=== PATIENT | female | born 1945 | race Caucasian/White ===

== ENCOUNTER 2019-09-24 14:06 | Inpatient (IN) | payer MEDICARE, OTHER ==
[~2019-09-24] VITALS: Ht 175.3 cm; Wt 117.9 kg
--- OUTSIDE RECORDS SUMMARY | 2019-09-24 14:09 | XMS REPORT ---
Author Author [facility] Address Unknown Phone Unavailable Care Team Providers Care Home Designer Name Role Phone BRANDEN APARICIO Unavailable Unavailable ISIAH ISBELL Unavailable Unavailable Problems This patient has no known problems. Allergies, Adverse Reactions, Alerts This patient has no known allergies or adverse reactions. Medications This patient has no known medications. Results Test Description Test Time Test Comments Text Results Atomic Results Result Comments POCT-GLUCOSE METER 2019-06-14 11:16:00 POC-GLUCOSE METER (BEAKER) (test yziq=3548) 145 mg/dL 70-110 : TESTED AT [address], [address]: Analog Ic Design Architect/Customs Entry Writer [id number] for LIS COYNE POCT-GLUCOSE [id number] 11:03:00* Test Item Value Reference Range Comments POC-GLUCOSE METER (BEAKER) (test qlys=4015) 273 mg/dL 70-110 : TESTED AT [address], [address]: Analog Ic Design Architect/Customs Entry Writer [id number] for NATALY SAWYER [id number] 06:20:00* Test Item Value Reference Range Comments MAGNESIUM (BEAKER) (test htiv=756) 2.1 mg/dL 1.6-2.6 BASIC METABOLIC [id number] 06:20:00* Test Item Value Reference Range Comments SODIUM (BEAKER) (test ucxb=239) 137 meq/L 136-145 POTASSIUM (BEAKER) (test focn=620) 4.0 meq/L 3.5-5.1 CHLORIDE (BEAKER) (test yowb=957) 100 meq/L 98-107 CO2 (BEAKER) (test rgvd=121) 29 meq/L 22-29 BLOOD UREA NITROGEN (BEAKER) (test erdb=782) 20 mg/dL 7-21 CREATININE (BEAKER) (test itim=397) 1.10 mg/dL 0.57-1.25 GLUCOSE RANDOM (BEAKER) (test rufk=535) 172 mg/dL 70-105 CALCIUM (BEAKER) (test gnor=816) 8.8 mg/dL 8.4-10.2 EGFR (BEAKER) (test qonl=3066) 49 mL/min/1.73 sq m ESTIMATED GFR IS NOT ACCURATE CREATININE CLEARANCE IN PREDICTING GLOMERULAR FILTRATION RATE. ESTIMATED GFR IS NOT APPLICABLE FOR DIALYSIS PATIENTS. POCT-GLUCOSE [id number] 16:48:00* Test Item Value Reference Range Comments POC-GLUCOSE METER (BEAKER) (test ozcj=3159) 246 mg/dL 70-110 : TESTED AT [facility] [address] [facility], [address]: Analog Ic Design Architect/Customs Entry Writer [id number] for LIS COYNE ESOPH, SWALLOW FUNCTION, WITH CINE OR [id number] 16:14:00Patient is NPO since 24 hrs almost , cannot give IV fluids due to CHFReason for exam:->severe dysphagiaFINAL REPORT Modified barium swallow exam with speech pathology service CLINICAL HISTORY: severe dysphagia IMPRESSION: Please see the speech pathology service report for details. Barium contrast of multiple consistencies is given to the patient to swallow. Fluoroscopic observation is performed during swallowing. Fluoro time: 3.5 minutes Number of images: 1 Signed: Ashly Lima Verified Date/Time: 06/13/2019 16:14:07 Reading Location: [address] Ortho Consult Reading Room -GLUCOSE [id number] 08:22:00 * Test Item Value Reference Range Comments POC-GLUCOSE METER (BEAKER) (test skqt=7515) 190 mg/dL 70-110 : TESTED AT [facility] [address] [facility], [address]: Analog Ic Design Architect/Customs Entry Writer [id number] for LIS COYNE POCT-GLUCOSE [id number] 21:24:00* Test Item Value Reference Range Comments POC-GLUCOSE METER (BEAKER) (test hxrd=5594) 256 mg/dL 70-110 : TESTED AT [facility] [address] [facility] [facility], [address]: Analog Ic Design Architect/Customs Entry Writer [id number] for ERICA LITTLE III POCT-GLUCOSE [id number] 18:38:00* Test Item Value Reference Range Comments POC-GLUCOSE METER (BEAKER) (test gdne=6909) 180 mg/dL 70-110 : TESTED AT [address], [address]: Analog Ic Design Architect/Customs Entry Writer [id number] for DIXON, ERANDY POCT-GLUCOSE [id number] 12:36:00* Test Item Value Reference Range Comments POC-GLUCOSE METER (BEAKER) (test wdog=1088) 171 mg/dL 70-110 : TESTED AT [address], [address]: Analog Ic Design Architect/Customs Entry Writer [id number] for DIXON, ERANDY POCT-GLUCOSE [id number] 08:43:00* Test Item Value Reference Range Comments POC-GLUCOSE METER (BEAKER) (test hzkp=2942) 142 mg/dL 70-110 : TESTED AT [address], [address]: Analog Ic Design Architect/Customs Entry Writer [id number] for DIXON, ERANDY POCT-GLUCOSE [id number] 21:13:00* Test Item Value Reference Range Comments POC-GLUCOSE METER (BEAKER) (test hwhq=9666) 223 mg/dL 70-110 : TESTED AT [address], [address]: Analog Ic Design Architect/Customs Entry Writer [id number] for SIDNEY VASQUEZ ERICA POCT-GLUCOSE [id number] 16:54:00* Test Item Value Reference Range Comments POC-GLUCOSE METER (BEAKER) (test mohs=0866) 152 mg/dL 70-110 : TESTED AT [address], [address]: Analog Ic Design Architect/Customs Entry Writer [id number] for LIS COYNE POCT-GLUCOSE [id number] 12:29:00* Test Item Value Reference Range Comments POC-GLUCOSE METER (BEAKER) (test nhry=1227) 125 mg/dL 70-110 : TESTED AT [address], [address]: Analog Ic Design Architect/Customs Entry Writer [id number] for LIS COYNE [id number] 05:44:00* Test Item Value Reference Range Comments MAGNESIUM (BEAKER) (test beup=802) 2.1 mg/dL 1.6-2.6 BASIC METABOLIC [id number] 05:44:00* Test Item Value Reference Range Comments SODIUM (BEAKER) (test hmba=513) 137 meq/L 136-145 POTASSIUM (BEAKER) (test gena=361) 4.1 meq/L 3.5-5.1 CHLORIDE (BEAKER) (test hpfx=977) 98 meq/L 98-107 CO2 (BEAKER) (test ngtn=711) 31 meq/L 22-29 BLOOD UREA NITROGEN (BEAKER) (test mknk=639) 19 mg/dL 7-21 CREATININE (BEAKER) (test lrno=591) 1.21 mg/dL 0.57-1.25 GLUCOSE RANDOM (BEAKER) (test ipkt=992) 162 mg/dL 70-105 CALCIUM (BEAKER) (test fuyl=127) 8.1 mg/dL 8.4-10.2 EGFR (BEAKER) (test ozxn=1892) 44 mL/min/1.73 sq m ESTIMATED GFR IS NOT ACCURATE CREATININE CLEARANCE IN PREDICTING GLOMERULAR FILTRATION RATE. ESTIMATED GFR IS NOT APPLICABLE FOR DIALYSIS PATIENTS. POCT-GLUCOSE [id number] 22:35:00* Test Item Value Reference Range Comments POC-GLUCOSE METER (BEAKER) (test vilr=8120) 168 mg/dL 70-110 : TESTED AT [address], [address]: Analog Ic Design Architect/Customs Entry Writer [id number] for FINN MADISON POCT-GLUCOSE [id number] 12:48:00* Test Item Value Reference Range Comments POC-GLUCOSE METER (BEAKER) (test mpna=4093) 149 mg/dL 70-110 : TESTED AT [address], [address]: Analog Ic Design Architect/Customs Entry Writer [id number] for Jyotsna Snell POCT-GLUCOSE [id number] 08:51:00* Test Item Value Reference Range Comments POC-GLUCOSE METER (BEAKER) (test ccma=0273) 122 mg/dL 70-110 : TESTED AT [address], [address]: Analog Ic Design Architect/Customs Entry Writer [id number] for BRENDA MCCARTHY [id number] 05:15:00* Test Item Value Reference Range Comments MAGNESIUM (BEAKER) (test pnxs=479) 1.9 mg/dL 1.6-2.6 BASIC METABOLIC [id number] 05:15:00* Test Item Value Reference Range Comments SODIUM (BEAKER) (test qxjm=052) 139 meq/L 136-145 POTASSIUM (BEAKER) (test joka=886) 3.7 meq/L 3.5-5.1 CHLORIDE (BEAKER) (test dzog=573) 98 meq/L 98-107 CO2 (BEAKER) (test trpg=926) 32 meq/L 22-29 BLOOD UREA NITROGEN (BEAKER) (test bwim=374) 16 mg/dL 7-21 CREATININE (BEAKER) (test giji=570) 1.03 mg/dL 0.57-1.25 GLUCOSE RANDOM (BEAKER) (test seas=832) 141 mg/dL 70-105 CALCIUM (BEAKER) (test vbhn=926) 8.3 mg/dL 8.4-10.2 EGFR (BEAKER) (test diih=8483) 53 mL/min/1.73 sq m ESTIMATED GFR IS NOT ACCURATE CREATININE CLEARANCE IN PREDICTING GLOMERULAR FILTRATION RATE. ESTIMATED GFR IS NOT APPLICABLE FOR DIALYSIS PATIENTS. B-TYPE NATRIURETIC FACTOR (BNP)2019-06-10 05:10:00* Test Item Value Reference Range Comments B-TYPE NATRIURETIC PEPTIDE (BEAKER) (test zdbs=955) 441 pg/mL 0-100 POCT-GLUCOSE [id number] 21:21:00* Test Item Value Reference Range Comments POC-GLUCOSE METER (BEAKER) (test dnjc=2060) 141 mg/dL 70-110 : TESTED AT [facility] [address] [facility], [address]: Analog Ic Design Architect/Customs Entry Writer [id number] for FINN MADISON POCT-GLUCOSE [id number] 17:21:00* Test Item Value Reference Range Comments POC-GLUCOSE METER (BEAKER) (test rnsr=4941) 82 mg/dL 70-110 : TESTED AT [facility] [address] [facility], [address]: Analog Ic Design Architect/Customs Entry Writer [id number] for Jyotsna Snell [id number] 07:35:00* Test Item Value Reference Range Comments MAGNESIUM (BEAKER) (test kosu=608) 1.6 mg/dL 1.6-2.6 BASIC METABOLIC [id number] 07:35:00* Test Item Value Reference Range Comments SODIUM (BEAKER) (test asso=817) 137 meq/L 136-145 POTASSIUM (BEAKER) (test jywy=042) 3.2 meq/L 3.5-5.1 CHLORIDE (BEAKER) (test duft=410) 98 meq/L 98-107 CO2 (BEAKER) (test xcwq=468) 30 meq/L 22-29 BLOOD UREA NITROGEN (BEAKER) (test mpaj=192) 16 mg/dL 7-21 CREATININE (BEAKER) (test hjpp=673) 0.94 mg/dL 0.57-1.25 GLUCOSE RANDOM (BEAKER) (test viur=442) 145 mg/dL 70-105 CALCIUM (BEAKER) (test jcjf=400) 8.2 mg/dL 8.4-10.2 EGFR (BEAKER) (test bctx=8487) 59 mL/min/1.73 sq m ESTIMATED GFR IS NOT ACCURATE CREATININE CLEARANCE IN PREDICTING GLOMERULAR FILTRATION RATE. ESTIMATED GFR IS NOT APPLICABLE FOR DIALYSIS PATIENTS. CBC W/PLT COUNT & AUTO [id number] 05:35:00* Test Item Value Reference Range Comments WHITE BLOOD CELL COUNT (BEAKER) (test yknp=144) 8.5 K/ L 3.5-10.5 RED BLOOD CELL COUNT (BEAKER) (test tvtu=719) 3.53 M/ L 3.93-5.22 HEMOGLOBIN (BEAKER) (test qadg=384) 10.9 GM/DL 11.2-15.7 HEMATOCRIT (BEAKER) (test qhbc=078) 34.6 % 34.1-44.9 MEAN CORPUSCULAR VOLUME (BEAKER) (test qrxg=403) 98.0 fL 79.4-94.8 MEAN CORPUSCULAR HEMOGLOBIN (BEAKER) (test ylqx=321) 30.9 pg 25.6-32.2 MEAN CORPUSCULAR HEMOGLOBIN CONC (BEAKER) (test wley=585) 31.5 GM/DL 32.2-35.5 RED CELL DISTRIBUTION WIDTH (BEAKER) (test wlmz=691) 16.0 % 11.7-14.4 PLATELET COUNT (BEAKER) (test fcdg=805) 210 K/CU MM 150-450 MEAN PLATELET VOLUME (BEAKER) (test xpng=929) 10.2 fL 9.4-12.3 NUCLEATED RED BLOOD CELLS (BEAKER) (test nmxv=695) 0 /100 WBC 0-0 NEUTROPHILS RELATIVE PERCENT (BEAKER) (test cfni=922) 66 % LYMPHOCYTES RELATIVE PERCENT (BEAKER) (test kujd=615) 22 % MONOCYTES RELATIVE PERCENT (BEAKER) (test qvec=395) 9 % EOSINOPHILS RELATIVE PERCENT (BEAKER) (test qkdx=744) 2 % BASOPHILS RELATIVE PERCENT (BEAKER) (test ljqx=124) 1 % NEUTROPHILS ABSOLUTE COUNT (BEAKER) (test zaiw=441) 5.61 K/ L 1.56-6.13 LYMPHOCYTES ABSOLUTE COUNT (BEAKER) (test xrim=926) 1.89 K/ L 1.18-3.74 MONOCYTES ABSOLUTE COUNT (BEAKER) (test nblx=829) 0.77 K/ L 0.24-0.36 EOSINOPHILS ABSOLUTE COUNT (BEAKER) (test erut=327) 0.17 K/ L 0.04-0.36 BASOPHILS ABSOLUTE COUNT (BEAKER) (test ydzc=340) 0.05 K/ L 0.01-0.08 IMMATURE GRANULOCYTES-RELATIVE PERCENT (BEAKER) (test cvfg=2396) 1 % 0-1 POCT-GLUCOSE [id number] 21:31:00* Test Item Value Reference Range Comments POC-GLUCOSE METER (BEAKER) (test ojtq=3442) 218 mg/dL 70-110 : TESTED AT [address], [address]: Analog Ic Design Architect/Customs Entry Writer [id number] for FINN MADISON POCT-GLUCOSE [id number] 17:30:00* Test Item Value Reference Range Comments POC-GLUCOSE METER (BEAKER) (test guao=0904) 145 mg/dL 70-110 : TESTED AT [address], [address]: Analog Ic Design Architect/Customs Entry Writer [id number] for HORTENCIAOMAR POCT-GLUCOSE [id number] 10:28:00* Test Item Value Reference Range Comments POC-GLUCOSE METER (BEAKER) (test pmxd=0180) 138 mg/dL 70-110 : TESTED AT [address], [address]: Analog Ic Design Architect/Customs Entry Writer [id number] for Jyotsna Snell C-REACTIVE [id number] 06:01:00* Test Item Value Reference Range Comments C-REACTIVE PROTEIN (BEAKER) (test sqzd=402) 10.42 mg/dL 0.00-0.50 [id number] 05:45:00* Test Item Value Reference Range Comments MAGNESIUM (BEAKER) (test dtml=209) 1.4 mg/dL 1.6-2.6 BASIC METABOLIC [id number] 05:45:00* Test Item Value Reference Range Comments SODIUM (BEAKER) (test cqiy=068) 136 meq/L 136-145 POTASSIUM (BEAKER) (test xrxo=830) 2.9 meq/L 3.5-5.1 CHLORIDE (BEAKER) (test xint=905) 98 meq/L 98-107 CO2 (BEAKER) (test fsrh=409) 30 meq/L 22-29 BLOOD UREA NITROGEN (BEAKER) (test kkau=240) 18 mg/dL 7-21 CREATININE (BEAKER) (test skmv=035) 1.02 mg/dL 0.57-1.25 GLUCOSE RANDOM (BEAKER) (test tmot=450) 124 mg/dL 70-105 CALCIUM (BEAKER) (test uaxj=259) 8.5 mg/dL 8.4-10.2 EGFR (BEAKER) (test zygw=5195) 53 mL/min/1.73 sq m ESTIMATED GFR IS NOT ACCURATE CREATININE CLEARANCE IN PREDICTING GLOMERULAR FILTRATION RATE. ESTIMATED GFR IS NOT APPLICABLE FOR DIALYSIS PATIENTS. B-TYPE NATRIURETIC FACTOR (BNP)2019-06-08 05:10:00* Test Item Value Reference Range Comments B-TYPE NATRIURETIC PEPTIDE (BEAKER) (test roht=846) 648 pg/mL 0-100 CBC W/PLT COUNT & AUTO [id number] 04:39:00* Test Item Value Reference Range Comments WHITE BLOOD CELL COUNT (BEAKER) (test sgbi=770) 9.3 K/ L 3.5-10.5 RED BLOOD CELL COUNT (BEAKER) (test uock=974) 3.80 M/ L 3.93-5.22 HEMOGLOBIN (BEAKER) (test oyng=088) 11.7 GM/DL 11.2-15.7 HEMATOCRIT (BEAKER) (test wsgi=748) 36.8 % 34.1-44.9 MEAN CORPUSCULAR VOLUME (BEAKER) (test waqe=977) 96.8 fL 79.4-94.8 MEAN CORPUSCULAR HEMOGLOBIN (BEAKER) (test szmu=097) 30.8 pg 25.6-32.2 MEAN CORPUSCULAR HEMOGLOBIN CONC (BEAKER) (test cuig=189) 31.8 GM/DL 32.2-35.5 RED CELL DISTRIBUTION WIDTH (BEAKER) (test gfyu=333) 16.0 % 11.7-14.4 PLATELET COUNT (BEAKER) (test tnwb=519) 221 K/CU MM 150-450 MEAN PLATELET VOLUME (BEAKER) (test bjse=694) 9.8 fL 9.4-12.3 NUCLEATED RED BLOOD CELLS (BEAKER) (test uhxk=888) 0 /100 WBC 0-0 NEUTROPHILS RELATIVE PERCENT (BEAKER) (test wwbg=117) 69 % LYMPHOCYTES RELATIVE PERCENT (BEAKER) (test axau=024) 20 % MONOCYTES RELATIVE PERCENT (BEAKER) (test bqtc=643) 8 % EOSINOPHILS RELATIVE PERCENT (BEAKER) (test yyfk=724) 1 % BASOPHILS RELATIVE PERCENT (BEAKER) (test aaga=611) 1 % NEUTROPHILS ABSOLUTE COUNT (BEAKER) (test eltu=450) 6.44 K/ L 1.56-6.13 LYMPHOCYTES ABSOLUTE COUNT (BEAKER) (test zqqm=472) 1.90 K/ L 1.18-3.74 MONOCYTES ABSOLUTE COUNT (BEAKER) (test cckj=006) 0.73 K/ L 0.24-0.36 EOSINOPHILS ABSOLUTE COUNT (BEAKER) (test lqnj=741) 0.11 K/ L 0.04-0.36 BASOPHILS ABSOLUTE COUNT (BEAKER) (test ovvs=889) 0.05 K/ L 0.01-0.08 IMMATURE GRANULOCYTES-RELATIVE PERCENT (BEAKER) (test lwnz=9960) 1 % 0-1 POCT-GLUCOSE [id number] 21:05:00* Test Item Value Reference Range Comments POC-GLUCOSE METER (BEAKER) (test wemz=5810) 231 mg/dL 70-110 : TESTED AT [facility] [address] [facility], [address]: Analog Ic Design Architect/Customs Entry Writer [id number] for SIDNEY VASQUEZ ERICA POCT-GLUCOSE [id number] 16:54:00* Test Item Value Reference Range Comments POC-GLUCOSE METER (BEAKER) (test dbkj=4299) 281 mg/dL 70-110 : TESTED AT [facility] [address] [facility], [address]: Analog Ic Design Architect/Customs Entry Writer [id number] for HARSHAL MITCHELL POCT-GLUCOSE [id number] 12:16:00* Test Item Value Reference Range Comments POC-GLUCOSE METER (BEAKER) (test hylm=6687) 385 mg/dL 70-110 : TESTED AT [place] [id number] [facility], [address]: Analog Ic Design Architect/Customs Entry Writer [id number] for HARSHAL MITCHELL TROPONIN [id number] 10:01:00* Test Item Value Reference Range Comments TROPONIN I (BEAKER) (test ewom=364) 0.05 ng/mL 0.00-0.03 Troponin I (TnI) levels must be interpreted in the context of the presenting sym ptoms and the clinical findings. Elevated TnI levels indicate myocardial damage, but are not specific for ischemic heart disease. Elevated TnI levels are seen in patients with other cardiac conditions (including myocarditis and congestive h eart failure), and slight TnI elevations occur in patients with other conditions , including sepsis, renal failure, acidosis, acute neurological disease, and per sistent tachyarrhythmia.POCT-GLUCOSE [id number] 09:17:00* Test Item Value Reference Range Comments POC-GLUCOSE METER (BEAKER) (test efil=0987) 338 mg/dL 70-110 : TESTED AT [place] [id number] [facility], [address]: Analog Ic Design Architect/Customs Entry Writer [id number] for HARSHAL MITCHELL TROPONIN [id number] 03:37:00* Test Item Value Reference Range Comments TROPONIN I (BEAKER) (test leew=921) 0.04 ng/mL 0.00-0.03 Troponin I (TnI) levels must be interpreted in the context of the presenting sym ptoms and the clinical findings. Elevated TnI levels indicate myocardial damage, but are not specific for ischemic heart disease. Elevated TnI levels are seen in patients with other cardiac conditions (including myocarditis and congestive h eart failure), and slight TnI elevations occur in patients with other conditions , including sepsis, renal failure, acidosis, acute neurological disease, and per sistent tachyarrhythmia.B-TYPE NATRIURETIC FACTOR (BNP)2019-06-07 03:37:00* Test Item Value Reference Range Comments B-TYPE NATRIURETIC PEPTIDE (BEAKER) (test oibe=351) 388 pg/mL 0-100 BASIC METABOLIC [id number] 03:33:00* Test Item Value Reference Range Comments SODIUM (BEAKER) (test rnar=691) 137 meq/L 136-145 POTASSIUM (BEAKER) (test atjp=825) 4.1 meq/L 3.5-5.1 CHLORIDE (BEAKER) (test hzvj=665) 100 meq/L 98-107 CO2 (BEAKER) (test juyh=570) 27 meq/L 22-29 BLOOD UREA NITROGEN (BEAKER) (test wxtw=314) 21 mg/dL 7-21 CREATININE (BEAKER) (test zeoq=955) 1.12 mg/dL 0.57-1.25 GLUCOSE RANDOM (BEAKER) (test ryal=389) 422 mg/dL 70-105 CALCIUM (BEAKER) (test ieep=680) 9.1 mg/dL 8.4-10.2 EGFR (BEAKER) (test gaxl=0222) 48 mL/min/1.73 sq m ESTIMATED GFR IS NOT ACCURATE CREATININE CLEARANCE IN PREDICTING GLOMERULAR FILTRATION RATE. ESTIMATED GFR IS NOT APPLICABLE FOR DIALYSIS PATIENTS. [id number] 03:31:00* Test Item Value Reference Range Comments PHOSPHORUS (BEAKER) (test tezp=090) 4.2 mg/dL 2.3-4.7 [id number] 03:31:00* Test Item Value Reference Range Comments MAGNESIUM (BEAKER) (test dohi=362) 1.6 mg/dL 1.6-2.6 HEPATIC FUNCTION [id number] 03:31:00* Test Item Value Reference Range Comments TOTAL PROTEIN (BEAKER) (test dcnd=532) 7.0 gm/dL 6.0-8.3 ALBUMIN (BEAKER) (test qunu=0046) 3.2 g/dL 3.5-5.0 BILIRUBIN TOTAL (BEAKER) (test fgpf=856) 0.7 mg/dL 0.2-1.2 BILIRUBIN DIRECT (BEAKER) (test jxsj=567) 0.4 mg/dL 0.1-0.5 ALKALINE PHOSPHATASE (BEAKER) (test dupj=356) 149 U/L 40-150 AST (SGOT) (BEAKER) (test gzgv=827) 53 U/L 5-34 ALT (SGPT) (BEAKER) (test xnxc=635) 27 U/L 6-55 CREATINE KINASE (CK)2019-06-07 03:31:00* Test Item Value Reference Range Comments CREATINE KINASE TOTAL (BEAKER) (test pkrw=524) 76 U/L 29-200 [id number] 03:31:00* Test Item Value Reference Range Comments LIPASE (BEAKER) (test zkno=002) 27 U/L 8-78 RAD, CHEST, 2 [id number] 03:24:00Reason for exam:->shortness of breathFINAL REPORT TECHNIQUE: RAD, CHEST, 2 VIEWS COMPARISON: None available Additional clinical history: Shortness of breath. IMPRESSION: Enlarged cardiomediastinal silhouette. Heterogeneous airspace opacity in the left base may represent a combination of pleural effusion and consolidation. Pneumonia should be excluded clinically. No right-sided pleural effusion. Coarse reticular airspace opacities bilaterally favored represent interstitial pulmonary edema with pulmonary vascular congestion. No pneumothorax. Osseous structures are unre markable. PFO closure device overlies the heart. Signed: Ana Melgoza eport Verified Date/Time: 06/07/2019 03:24:38 /[id number] 03:20:00* Test Item Value Reference Range Comments PROTIME (BEAKER) (test xgzv=486) 14.8 seconds 11.9-14.2 INR (BEAKER) (test kdti=136) 1.2 <=5.9 PARTIAL THROMBOPLASTIN TIME (BEAKER) (test yqgx=533) 25.2 seconds 22.5-36.0 Effective 11/22/2018: PT Reference Range ChangeNew: 11.9-14.2 Previous: 11.7-14. 7RECOMMENDED COUMADIN/WARFARIN INR THERAPY RANGESSTANDARD DOSE: 2.0-3.0 Include s: PROPHYLAXIS for venous thrombosis, systemic embolization; TREATMENT for venou s thrombosis and/or pulmonary embolus.HIGH RISK: Target INR is 2.5-3.5 for patie nts wiht mechanical heart valves.CBC W/PLT COUNT & AUTO [id number] 03:09:00* Test Item Value Reference Range Comments WHITE BLOOD CELL COUNT (BEAKER) (test emux=788) 7.8 K/ L 3.5-10.5 RED BLOOD CELL COUNT (BEAKER) (test lfrr=801) 4.13 M/ L 3.93-5.22 HEMOGLOBIN (BEAKER) (test hwki=285) 12.8 GM/DL 11.2-15.7 HEMATOCRIT (BEAKER) (test slyp=085) 40.3 % 34.1-44.9 MEAN CORPUSCULAR VOLUME (BEAKER) (test kykr=217) 97.6 fL 79.4-94.8 MEAN CORPUSCULAR HEMOGLOBIN (BEAKER) (test iqzf=701) 31.0 pg 25.6-32.2 MEAN CORPUSCULAR HEMOGLOBIN CONC (BEAKER) (test nmxf=700) 31.8 GM/DL 32.2-35.5 RED CELL DISTRIBUTION WIDTH (BEAKER) (test mixf=414) 15.9 % 11.7-14.4 PLATELET COUNT (BEAKER) (test mjul=494) 197 K/CU MM 150-450 MEAN PLATELET VOLUME (BEAKER) (test phjq=615) 9.8 fL 9.4-12.3 NUCLEATED RED BLOOD CELLS (BEAKER) (test nnuo=799) 0 /100 WBC 0-0 NEUTROPHILS RELATIVE PERCENT (BEAKER) (test sudm=947) 80 % LYMPHOCYTES RELATIVE PERCENT (BEAKER) (test hign=958) 12 % MONOCYTES RELATIVE PERCENT (BEAKER) (test agxs=296) 6 % EOSINOPHILS RELATIVE PERCENT (BEAKER) (test utqa=756) 1 % BASOPHILS RELATIVE PERCENT (BEAKER) (test butd=276) 1 % NEUTROPHILS ABSOLUTE COUNT (BEAKER) (test sgrf=631) 6.24 K/ L 1.56-6.13 LYMPHOCYTES ABSOLUTE COUNT (BEAKER) (test vkku=481) 0.92 K/ L 1.18-3.74 MONOCYTES ABSOLUTE COUNT (BEAKER) (test tcnx=060) 0.50 K/ L 0.24-0.36 EOSINOPHILS ABSOLUTE COUNT (BEAKER) (test fsxd=438) 0.10 K/ L 0.04-0.36 BASOPHILS ABSOLUTE COUNT (BEAKER) (test vukh=164) 0.04 K/ L 0.01-0.08 IMMATURE GRANULOCYTES-RELATIVE PERCENT (JENNA) (test ysay=0733) 1 % 0-1 NV, ANGIOGRAM, [id number] 17:06:00Reason for Exam:->paz paz disease FINAL REPORT Date of service February 01, 2017Clinical backg round: 71 years old female with history of moyamoya disease. The patient was ref erred for cerebral arteriogram to evaluate the intracranial and extracranial cir culation. Procedure: The risk and benefits of the procedure as well as alternat nicole were explained to the patient and she expressed understanding and willingne ss to proceed with the procedure. A consent form was signed by the mother.. The risks include but not limited to stroke, damage to the blood vessels, damage to the cranial nerves, hemorrhage, infection, allergic reaction to the contrast, da mage to the kidney with renal failure,need for emergency treatment, and . Using a micropuncture set and under fluoroscopic guidance and strict sterile [place] hn[place] a 4 Thai femoral sheath was inserted into the right common femoral whitney ry. Through the sheath a 4 Thai vertebral catheter was then advanced over the wire and the following procedure was performed: 1. Selective right common car otid arteriogram with biplane imaging over the common carotid bifurcation. 2. Se lective right internal carotid arteriogram with biplane and oblique imaging over the intracranial carotid circulation.3. Selective right external carotid arteri ogram with biplane imaging over the intracranial carotid circulation.4. Selectiv e left common carotid arteriogram with biplane imaging over the common carotid b ifurcation. 5. Selective left internal carotid arteriogram with biplane and obli que imaging over the intracranial carotid circulation.6. Selective left external carotid arteriogram with biplane imaging over the intracranial carotid circulat ion7. Selective left vertebral arteriogram with biplane and oblique imaging over the vertebrobasilar circulation.8. Selective right vertebral arteriogram with b iplane and oblique imaging over the vertebrobasilar circulation. Findings: Th e selective right common carotid arteriogram with biplane imaging over the commo n carotid bifurcation showed mild atherosclerotic changes with no significant st enosis in the proximal internal carotid artery. 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 There are numerous prominent arterial-arterial collaterals as well as collateral from the right ophthalmic artery with mild reconstitution of the right anterior and middle cerebral arteries in antegrade fashion. There is direct filling of the right posterior cerebral artery through a prominent right posterior communic ating artery with good retrograde filling of the cortical branches of the right anterior and middle cerebral arteries through numerous collaterals from the temp oral, choroidal, splenial , and cortical branches of the posterior cerebral whitney ry The selective right external carotid arteriogram demonstrates normal branchin g with patent superficial temporal and middle meningeal arteries. There are few transdural meningeal collaterals to the intracranial carotid circulation. The s elective left common carotid arteriogram with biplane imaging over the common ca rotid bifurcation showed mild atherosclerotic changes with no significant stenos is in the proximal internal carotid artery. The selective left internal carotid arteriogram again demonstrates complete occlusion of the supraclinoid segment of the left internal carotid artery distal to the origin of the ophthalmic artery. There are numerous prominent arterial-arterial collaterals as well as collateral from the right ophthalmic artery with mild reconstitution of the right anterior and middle cerebral arteries in antegrade fashion. There is direct filling of the right posterior cerebral artery through a prominent right posterior communic ating artery with good retrograde filling of the cortical branches of the right anterior and middle cerebral arteries through numerous collaterals from the temp oral, choroidal, splenial , and cortical branches of the posterior cerebral whitney ry. There is also filling across the anterior communicating artery and both KOBY fillings are seen on this left injection. The selective left external carotid ar teriogram demonstrates normal branching with with patent superficial temporal an d middle meningeal arteries. There are few transdural meningeal collaterals from the left distal internal maxillary artery to the cortical branches of the left anterior cerebral artery. The selective left vertebral arteriograms demonstrates normal antegrade flow with no evidence of aneurysm, vascular malformation, or s ignificant focal stenosis.There are numerous collaterals from the temporal, chor oidal, splenial, and cortical branches of the posterior cerebral arteries to the KOBY and MCA bilaterally. At the end of the procedure, the right femoral sheath was withdrawn. Local hemostasis was achieved utilizing manual compression. The p atient awoke from general anesthesia at baseline neurologic examination without acute complication.clinical background: Impression: 1. 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 2. Prominent strial collaterals around the basal ganglia as well as pial collaterals from the posterior circulat ion. 6. Patent bilateral superficial temporal and middle meningeal arteries with few transdural meningeal collaterals bilaterally . Signed: Marie Archuleta MDReport Verified Date/Time: 02/01/2017 17:06:26 Reading Location: [facility] Y[address] [facility] io Reading Room /[id number] 12:49:00* Test Item Value Reference Range Comments PROTIME (BEAKER) (test gybb=134) 13.5 seconds 11.7-14.7 INR (BEAKER) (test bgij=604) 1.0 <=5.9 PARTIAL THROMBOPLASTIN TIME (BEAKER) (test acet=338) 28.0 seconds 22.5-36.0 RECOMMENDED COUMADIN/WARFARIN INR THERAPY RANGESSTANDARD DOSE: 2.0 - 3.0 Inclu wil: PROPHYLAXIS for venous thrombosis, systemic embolization; TREATMENT for elsa ous thrombosis and/or pulmonary embolus.HIGH RISK: Target INR is 2.5-3.5 for pat ients with mechanical heart valves.BASIC METABOLIC [id number] 12:27:00* Test Item Value Reference Range Comments SODIUM (BEAKER) (test nrme=453) 139 meq/L 136-145 POTASSIUM (BEAKER) (test pikr=721) 4.2 meq/L 3.5-5.1 CHLORIDE (BEAKER) (test onvs=922) 104 meq/L 98-107 CO2 (BEAKER) (test wjfu=816) 26 meq/L 22-29 BLOOD UREA NITROGEN (BEAKER) (test pzlm=721) 14 mg/dL 7-21 CREATININE (BEAKER) (test ebto=037) 0.97 mg/dL 0.57-1.25 GLUCOSE RANDOM (BEAKER) (test kiiq=809) 293 mg/dL 70-105 CALCIUM (BEAKER) (test nlhk=225) 8.9 mg/dL 8.4-10.2 EGFR (BEAKER) (test tozi=0444) 57 mL/min/1.73 sq m ESTIMATED GFR IS NOT ACCURATE CREATININE CLEARANCE IN PREDICTING GLOMERULAR FILTRATION RATE. ESTIMATED GFR IS NOT APPLICABLE FOR DIALYSIS PATIENTS. CBC W/PLT COUNT & AUTO [id number] 12:04:00* Test Item Value Reference Range Comments WHITE BLOOD CELL COUNT (BEAKER) (test wnik=842) 7.7 K/ L 3.5-10.5 RED BLOOD CELL COUNT (BEAKER) (test qezp=191) 3.76 M/ L 3.93-5.22 HEMOGLOBIN (BEAKER) (test iomv=414) 11.7 GM/DL 11.2-15.7 HEMATOCRIT (BEAKER) (test solj=771) 35.5 % 34.1-44.9 MEAN CORPUSCULAR VOLUME (BEAKER) (test vtrm=404) 94.4 fL 79.4-94.8 MEAN CORPUSCULAR HEMOGLOBIN (BEAKER) (test qaxm=527) 31.1 pg 25.6-32.2 MEAN CORPUSCULAR HEMOGLOBIN CONC (BEAKER) (test fppo=408) 33.0 GM/DL 32.2-35.5 RED CELL DISTRIBUTION WIDTH (BEAKER) (test kukk=924) 13.8 % 11.7-14.4 PLATELET COUNT (BEAKER) (test nvcb=268) 229 K/CU MM 150-450 MEAN PLATELET VOLUME (BEAKER) (test slcn=964) 9.3 fL 9.4-12.3 NUCLEATED RED BLOOD CELLS (BEAKER) (test gwat=199) 0 /100 WBC 0-0 NEUTROPHILS RELATIVE PERCENT (BEAKER) (test illo=642) 66 % LYMPHOCYTES RELATIVE PERCENT (BEAKER) (test otjt=766) 24 % MONOCYTES RELATIVE PERCENT (BEAKER) (test rmxy=114) 7 % EOSINOPHILS RELATIVE PERCENT (BEAKER) (test kcak=032) 2 % BASOPHILS RELATIVE PERCENT (BEAKER) (test fztt=268) 1 % NEUTROPHILS ABSOLUTE COUNT (BEAKER) (test dvju=560) 5.05 K/ L 1.56-6.13 LYMPHOCYTES ABSOLUTE COUNT (BEAKER) (test vpfb=082) 1.80 K/ L 1.18-3.74 MONOCYTES ABSOLUTE COUNT (BEAKER) (test jwrs=430) 0.54 K/ L 0.24-0.36 EOSINOPHILS ABSOLUTE COUNT (BEAKER) (test vibw=129) 0.16 K/ L 0.04-0.36 BASOPHILS ABSOLUTE COUNT (BEAKER) (test ureb=613) 0.04 K/ L 0.01-0.08 IMMATURE GRANULOCYTES-RELATIVE PERCENT (BEAKER) (test tlwt=6208) 1 % 0-1
[2019-09-24] MEDS ORDERED: FUROSEMIDE INJ 10 MG/ML 4 ML VIAL IV ONE (14:30)
[2019-09-24] MEDS ORDERED: CLINDAMYCIN PHOS 900MG/ 50ML 50 ML IV SCH (14:30)
[2019-09-24 14:50] LABS: BASOPHILS % 0.6 % (0.0-1.0); EOSINOPHILS # (AUTO) 0.3 (0.0-0.4); EOSINOPHILS % 4.2 % (0.0-6.0); HEMATOCRIT 29.1 % (34.2-44.1); HEMOGLOBIN 9.1 g/dL (12.0-16.0); LYMPHOCYTES # (AUTO) 1.5 (1.0-3.2); LYMPHOCYTES % 24.4 % (18.0-39.1); MEAN CORPUSCULAR HEMOGLOBIN 32.6 pg (28-32); MEAN CORPUSCULAR HGB CONC 31.3 g/dL (31-35); MEAN CORPUSCULAR VOLUME 104.3 fL (81-99); MONOCYTES # (AUTO) 0.5 (0.2-0.8); MONOCYTES % 8.4 % (4.4-11.3); NEUTROPHILS # (AUTO) 3.8 (2.1-6.9); NEUTROPHILS % 61.9 % (38.7-80.0); PLATELET COUNT 206 x10e3/uL (140-360); RED BLOOD COUNT 2.79 x10e6/uL (3.6-5.1); RED CELL DISTRIBUTION WIDTH 16.9 % (11.7-14.4)
[2019-09-24 14:55] LABS: CLARITY,URINE SL CLOUDY (CLEAR); COLOR,URINE YELLOW (YELLOW); LEUKOCYTE ESTERASE ,URINE 2+ (NEGATIVE)
[2019-09-24 14:56] LABS: BILIRUBIN,URINE NEGATIVE (NEGATIVE); KETONES,URINE NEGATIVE (NEGATIVE); NITRITE,URINE POSITIVE (NEGATIVE); PROTEIN,URINE DIPSTICK 1+ (NEGATIVE); URINE UROBILINOGEN 0.2 mg/dL (0.2 - 1)
[2019-09-24] MEDS ORDERED: FLUCONAZOLE 100 MG/NS 50 ML 50 ML IV ONE (15:00)
[2019-09-24 15:02] LABS: ALBUMIN 2.8 g/dL (3.5-5.0); ALBUMIN/GLOBULIN RATIO 0.6 (0.8-2.0); ANION GAP 12.6 mmol/L (8-16); CALCIUM 8.6 mg/dL (8.4-10.2); CREATININE, SERUM 2.03 mg/dL (0.57-1.11); POTASSIUM 4.6 mmol/L (3.5-5.1)
[2019-09-24 15:11] LABS: BACTERIA,URINE MANY /HPF; WBC,URINE (MAN) >50 /HPF (0-5)
[2019-09-24] MEDS ORDERED: ONDANSETRON HCL INJ 2MG/ML 2ML 2 MG/ML VIAL IV PRN (15:45)
[2019-09-24] MEDS ORDERED: SODIUM CHLORIDE FLUSH 10 ML SYR IV PRN (15:45)
[2019-09-24] MEDS ORDERED: CEFTRIAXONE SOD 2 GM/NS 100 ML 100 ML IV ONE (16:00)
[2019-09-24 16:21] LABS: AMPHETAMINES SCREEN,URINE NEGATIVE (NEGATIVE); BENZODIAZEPINES SCREEN,URINE NEGATIVE (NEGATIVE); PHENCYCLIDINE SCREEN,URINE NEGATIVE (NEGATIVE)
--- NOTE | 2019-09-24 16:27 | Diagnostic Imaging Report ---
EXAMINATION: CHEST SINGLE (PORTABLE) INDICATION: Shortness of breath COMPARISON: None FINDINGS: LINES/TUBES:EKG leads overlie the chest. LUNGS:The lungs are moderately inflated. Bilateral hazy airspace opacities. PLEURA:No pleural effusion or pneumothorax. MEDIASTINUM:The cardiomediastinal silhouette appears appears mildly enlarged, possibly related to portable technique. BONES/SOFT TISSUES:No acute osseous injury. ABDOMEN:No free air under the diaphragm. IMPRESSION: Bilateral hazy airspace opacities may represent aspiration and/or pneumonia in the proper clinical setting. Signed by: Timothy Worthington MD on 09/24/2019 4:24 PM
[2019-09-24] MEDS: NYSTATIN 15 GM POWDER UD BTL TOP SCH (17:00)
[2019-09-24 17:15] VITALS: BP 139/78
[2019-09-24 18:03] VITALS: BP 139/78
[2019-09-24] MEDS ORDERED: HYDROCODONE/APAP 7.5MG-325MG 1 EA TAB PO PRN (18:15)
[2019-09-24] MEDS: TRAMADOL HCL 50 MG TAB PO PRN (19:08)
--- NOTE | 2019-09-24 19:57 | NUR ---
RECEIVED PT IN BED AOX3 .RESPIRATIONS ARE EVEN AND UN LABORED BILATERAL LOWER LEGS RED AND SWOLLEN .STAGE 2 TO THE SACRUM .PT HAS F/C DRAINING DENIES PAIN CALL LIGHT WITH IN REACH .CONTINUE TO MONITOR
[2019-09-24 20:31] VITALS: BP 138/67
[2019-09-24 20:36] VITALS: BP 138/67
[2019-09-24] MEDS ORDERED: ENOXAPARIN SOD INJ 40 MG/0.4 ML SYR SC ONE (22:00)
[2019-09-25] VITALS (8 sets, daily range): BP systolic 105–140; BP diastolic 56–82
[2019-09-25] MEDS ORDERED: SODIUM CHLORIDE 0.9% 250ML 250 ML ONE (01:12)
[2019-09-25] MEDS: TRAMADOL HCL 50 MG TAB PO PRN ×3 (01:37→22:56)
[2019-09-25 06:02] LABS: BASOPHILS # (AUTO) 0.1 (0.0-0.1); EOSINOPHILS # (AUTO) 0.2 (0.0-0.4); HEMATOCRIT 30.8 % (34.2-44.1); HEMOGLOBIN 9.3 g/dL (12.0-16.0); LYMPHOCYTES # (AUTO) 1.3 (1.0-3.2); MEAN CORPUSCULAR HEMOGLOBIN 32.1 pg (28-32); MEAN CORPUSCULAR HGB CONC 30.2 g/dL (31-35); MEAN CORPUSCULAR VOLUME 106.2 fL (81-99); MONOCYTES # (AUTO) 0.4 (0.2-0.8); NEUTROPHILS # (AUTO) 3.4 (2.1-6.9); PLATELET COUNT 206 x10e3/uL (140-360)
[2019-09-25] MEDS: CLINDAMYCIN PHOS 900MG/ 50ML 50 ML IV SCH ×3 (06:11→12:38)
[2019-09-25 06:29] LABS: ALBUMIN 2.8 g/dL (3.5-5.0); ALBUMIN/GLOBULIN RATIO 0.6 (0.8-2.0); ANION GAP 12.6 mmol/L (8-16); CALCIUM 8.4 mg/dL (8.4-10.2); CREATININE, SERUM 1.75 mg/dL (0.57-1.11); POTASSIUM 4.6 mmol/L (3.5-5.1)
--- NOTE | 2019-09-25 06:50 | NUR ---
PT C/O PAIN TO THE LOWER LEGS GIVEN ORDERED PAIN MEDICATION .CALL LIGHT WITH IN REACH .CONTINUE TO MONITO R
[2019-09-25] MEDS: NYSTATIN 15 GM POWDER UD BTL TOP SCH ×2 (08:21→16:06)
[2019-09-25] MEDS ORDERED: ENOXAPARIN SOD INJ 40 MG/0.4 ML SYR SC SCH (09:00)
[2019-09-25 10:07] LABS: INR 1.76; PROTHROMBIN TIME 21.8 seconds (11.9-14.5)
[2019-09-25] MEDS ORDERED: DEXTROSE 50% SYRINGE 50 ML IV PRN (10:15)
[2019-09-25] MEDS ORDERED: DIPHENHYDRAMINE HCL 25 MG CAP PO PRN (10:15)
[2019-09-25 11:09] LABS: PARTIAL THROMBOPLASTIN TIME 46.4 seconds (23.8-35.5)
--- NOTE | 2019-09-25 11:23 | Consultation ---
DATE OF CONSULTATION: 09/25/2019 Cardiac Consultation REASON FOR CONSULTATION: Very complex medical problem with a lot of healthy issue with ischemic left foot and nonhealing ulcer on the left foot in addition to severe cellulitis. HISTORY OF PRESENT ILLNESS: The patient is poor historian. Records are taken from her, from her son and from her records, which we were lyn to get some access to her records in [facility]. Apparently, she is a 73-year-old lady who is known with obesity, hypertension, diabetes mellitus, congestive heart failure, CVA in 2009, possible history of atrial fibrillation, chronic swelling of the lower extremity, chronic ischemic changes with ulcers, nonhealing of the lower extremities. The patient followed by Aline Coto and Barbra in [facility]. The patient left there one week ago. There was worsening of ulcer and immobility and unable to do anything. The patient went back to her living place area where she lives with her son. It was noted by the nursing staff she is having severe pain, ulcer and cellulitis of the left lower extremity brought to this institution. Cardiac consultation is obtained. The patient seems to be bedridden for the last few months, unable to do much activity. She is having severe pain in the lower extremity, namely more of the left foot and left leg with ulcer, swelling and repeated admission with cellulitis. The patient's activities are very limited. She is in bed. REVIEW OF SYSTEMS: Very extensive and will be summarized for clarity. GENERAL: Failure to thrive, obesity, immobility. HEENT: Decreased hearing. PULMONARY: Easy fatigability, shortness of breath on minimal activity. CARDIAC: Orthopnea at time, swelling of the lower extremity, easy fatigability. No angina, swelling of the lower extremity, or cough. GI: Constipation. : Incontinence. MUSCULOSKELETAL: Severe pain of the lower extremities, more pronounced on the left lower extremity and left foot. ENDOCRINE: The patient is diabetic of many years' duration. MUSCULOSKELETAL: Aches and pain. SOCIAL HISTORY: She lives with her son. She is nonsmoker and non-alcohol drinker. PAST MEDICAL HISTORY: Very lengthy includin. Diabetes mellitus with severe end-organ damage. 2. Morbid obesity. 3. Congestive heart failure. 4. Hypertension. 5. CVA affecting the left body side. 6. Possible past history of atrial fibrillation. 7. Severe peripheral arterial vascular disease. 8. Chronic swelling of the lower extremity with chronic venous and arterial insufficiency. 9. Nonhealing ulcers on the heel and foot with very painful severe symptoms. FAMILY HISTORY: Positive for diabetes mellitus and hypertension. PHYSICAL EXAMINATION: GENERAL: Morbidly obese lady. VITAL SIGNS: Height of 5 feet 9 inches, weight of 260 pounds, blood pressure 130/80, heart rate of 80, respiratory rate of 18. HEENT: Decreased hearing is noted. NECK: Elevation of jugular venous pulsation is noted. CHEST: Decreased air entry in both bases with crackles. HEART: PMI 5th left intercostal space. Possible 3rd heart sound. Tricuspid regurgitation murmur. ABDOMEN: Liver edge is palpable. EXTREMITIES: Redness and cellulitis of the left lower extremity, chronic venous stasis of both lower extremity quite pronounced. Evidence of ischemic left foot ulcer on the left heel and the left foreleg is smaller, few spotty skin abrasion and ulcers on the right leg. NEUROLOGIC: Awake, alert, very weak, barely can move her extremities. HOME MEDICATIONS: Gabapentin 600 b.i.d., Cymbalta 60 mg a day, Protonix 40 mg a day, Coreg 12.5 mg twice a day, lisinopril 5 mg a day, Lasix 40 mg a day, Aldactone 25 mg a day, pravastatin 80 mg a day, Zetia 10 mg a day, Levemir 15 units a day and Humalog sliding scale, albuterol inhalers p.r.n. ALLERGIES: CODEINE. LABORATORY DATA: BUN of 44, creatinine of 2, sodium of 138, potassium of 4.6. White blood cell count of 5.5, hemoglobin 9.3, hematocrit 30%, and platelet count of 206,000. Urinalysis positive for protein. Chest x-ray showing cardiomegaly. No EKG. IMPRESSION AND PLAN: 1. Cellulitis of the left lower extremity with evidence of both venous and arterial insufficiency with ischemic left foot and presence of more ulcer, more pronounced on the left lower extremity. 2. Diabetes mellitus with end-organ damage. 3. Advanced congestive heart failure, seems to be systolic. 4. Diabetes mellitus, severe end-organ damage. 5. Chronic renal insufficiency. 6. Possible nephrotic syndrome. 7. Anemia. 8. Coronary artery disease. 9. Hypertension. 10. Hypercholesteremia. The patient presented with cellulitis and ischemic left foot with nonhealing ulcers, treatment will be aggressive. We are going to continue her medication. We are going to stop her lisinopril and Aldactone because of her renal insufficiency. We will continue her other medication. We will give her Lasix intravenously. We will check arterial Doppler and venous Doppler to rule out also deep venous thrombosis because of marked swelling of the left lower extremity and more swollen than the right. Arterial Doppler to be done. Echocardiogram to be done. The patient care was for more than 100 minute or 110 minutes, getting data and calling to the son and trying to get more information. Orders are written. Case discussed with the staff. We will follow the patient's progression with you and would like to thank you for your kind referral. MD JAIMEE Khoury/WHIT /[id number]
--- NOTE | 2019-09-25 12:15 | NUR ---
Pt. expressed no spiritual or emotional concerns at this time. Provided hospitality and information on how to reach maintainer operator, if needed. Pt expressed appreciation for visit. No need to follow at this time. FRANNY ZAPIEN Coat Operator Spiritual Care Department O: [phone]
[2019-09-25] MEDS: INSULIN LISPRO 100 UNIT/1 ML 3ML VIAL SQ SCH ×3 (12:36→21:00)
[2019-09-25] MEDS: CEFTRIAXONE SOD 1 GM/NS 50 ML 50 ML IV SCH (16:03)
[2019-09-25] MEDS: VANCOMYCIN 1GM/NS 250 ML 250 ML IV SCH (16:03)
[2019-09-25] MEDS: GABAPENTIN 300 MG CAP PO SCH (16:04)
[2019-09-25] MEDS: LACTOBACILLUS ACIDOPHILUS CAPSULE PO SCH (16:04)
[2019-09-25] MEDS: CARVEDILOL 12.5 MG TAB PO SCH (16:05)
[2019-09-25] MEDS: INSULIN GLARGINE 100 UNITS/ML VIAL SQ SCH ×2 (16:16→21:39)
--- NOTE | 2019-09-25 17:06 | Diagnostic Imaging Report ---
EXAM: Renal Ultrasound INDICATION: ^RENAL FAILURE ^[id number] ^1527 COMPARISON: None TECHNIQUE: Transverse and longitudinal images of the kidneys and bladder were obtained. FINDINGS: Right Kidney: Length: 12.1 cm Appearance: Normal echogenicity. Collecting system: No hydronephrosis Stones: None Cyst/Mass: None Left Kidney: Length: 11.1 cm Appearance: Normal echogenicity. Collecting system: No hydronephrosis Stones: None Cyst/Mass: None Bladder: Decompressed. Darden in place. Incidental note made of splenomegaly to 14.1cm. IMPRESSION: No hydronephrosis or renal calculi. Splenomegaly. Signed by: Timothy Worthington MD on 09/25/2019 5:02 PM
--- NOTE | 2019-09-25 17:15 | Diagnostic Imaging Report ---
EXAMINATION: CHEST SINGLE (PORTABLE) INDICATION: Shortness of breath COMPARISON: Chest radiograph 09/24/2019 FINDINGS: LINES/TUBES:EKG leads overlie the chest. LUNGS:Unchanged bilateral right greater than left airspace opacities. PLEURA:No pleural effusion or pneumothorax. MEDIASTINUM:The cardiomediastinal silhouette appears unchanged in size and shape. BONES/SOFT TISSUES:No acute osseous injury. ABDOMEN:No free air under the diaphragm. IMPRESSION: Unchanged bilateral right greater than left airspace opacities, concerning for multifocal pneumonia Signed by: Timothy Worthington MD on 09/25/2019 5:11 PM
--- NOTE | 2019-09-25 17:42 | NUR ---
Nutrition Screen Note RD Recommendation for Physician: - Continue current diet - Insulin and BG management per MD Plan of Care: RD following, monitoring for tolerance and adequacy Nutrition reason for involvement: Nutrition Risk Trigger, stage II PU on admit Primary Diagnose(s): cellulitis of L lower limb PMH: obesity, DM, HTN, CHF, CVA, Afib, non healing ulcer of lower extremities Ht: 69 in Wt: 260 lb BMI: 38.4 kg/m2 IBW: [address] Assessment: (09/24) 73 YOF admitted for cellulits of L lower leg with hx of DM and non healing ulcers. Pt seen today per MST screen and sacral PU II on admit. Pt slightly confused and slow to answer questions at time of visit. Pt reports UBW of "in the 240's", however she states she has lost weight and no "now in the 260's". 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 NATURAL RESOURCES INSTRUCTOR at bedside reports 100% intake for lunch. Chart reviewed. Labs and meds reviewed, elevated BG noted- pt currently on lantus and lispro. Will continue to monitor. Current Diet: 1800 ADA Malnutrition Evaluation (09/25/19) The patient does not meet criteria for a specified degree of malnutrition at this time. Will re-evaluate at follow-up as appropriate. Energy intake: No poor intake reported Weight loss: No wt loss reported Fat loss: ample tricep skinfold thickness Muscle loss: none, shoulder round Supporting Evidence: Fluid accumulation: none observed Functional Status: not assessed Diet Education Needs Assessment: Diet education indicated, pt not appropriate at this time 2/2 mentation. Diet tolerance: 1800 ADA Nutrition Care Level: low Signed: Birgit Dunlap RD, LD, [facility]
--- NOTE | 2019-09-25 18:31 | Consultation ---
DATE OF CONSULTATION: 09/25/2019 Renal Consultation REASON FOR CONSULTATION: Acute kidney injury. HISTORY OF PRESENT ILLNESS: A 73-year-old female with history of hypertension, diabetes, and congestive heart failure, who presented to [facility] with left foot pain. The patient is a poor historian and history is taken from medical record, as no family is at bedside. The patient has had chronic swelling of lower extremity as well as chronic ischemic changes with nonhealing ulcer of the lower left extremity that has gradually gotten worse. The patient now was living with her son and pain became so severe, she was brought into [facility] for further evaluation. The patient was seen by Cardiology, was started on IV antibiotics for cellulitis. She was noted to have elevated BUN and creatinine, and Nephrology consultation was called. The patient denies having history of kidney disease in the past, but states she takes Advil for pain. REVIEW OF SYSTEMS: A 12-point review of systems completed. All systems negative other than mentioned in the HPI above. PAST MEDICAL HISTORY: 1. Diabetes type 2. 2. Hypertension. 3. Congestive heart failure. 4. History of CVA. 5. Atrial fibrillation. SOCIAL HISTORY: No tobacco. No alcohol. No IV drugs. Lives with son. FAMILY HISTORY: No family history of kidney disease. ALLERGIES: CODEINE. CURRENT MEDICATIONS: See list. PHYSICAL EXAMINATION: VITAL SIGNS: Blood pressure 130/64, pulse 65, respiratory rate 20, and temperature 96.8. GENERAL: No apparent distress. HEENT: Oropharynx clear. No scleral icterus. No peripheral edema. NECK: Supple. No elevation in jugular venous pressure. No lymphadenopathy. CHEST: Clear to auscultation anteriorly bilaterally. CARDIOVASCULAR: Regular rhythm. No murmurs or rubs. ABDOMEN: Soft. Positive bowel sounds. No tenderness. No rebound. EXTREMITIES: 1+ edema left lower extremity with erythema. LABORATORY DATA: Sodium 138, potassium 4.6, chloride 105, CO2 25, BUN 38, creatinine 1.75, glucose 299, and albumin 2.8. White count 5.4, hemoglobin 9.3, hematocrit 30.8, and platelets 206. Urine, 1+ protein. IMAGING: Renal ultrasound, right kidney 12.1 cm, left kidney 11.1 cm, normal echogenicity. No hydronephrosis. Chest x-ray, bilateral hazy airspace opacities may represent aspiration pneumonia. ASSESSMENT AND PLAN: 1. Acute kidney injury on chronic kidney disease, suspect the patient has underlying stage 3 or 4 chronic kidney disease. We will check urine studies and avoid all nephrotoxic medications including NSAIDs. 2. Volume overload. Continue with IV Lasix. Cardiology is consulted. 3. Diabetes per primary team. 4. Anemia, suspect secondary to chronic kidney disease. We will check iron stores. 5. Atrial fibrillation, on Eliquis. 6. Left foot cellulitis. Continue antibiotics. Infectious Disease has been consulted. MD JENNY Linn/MODL /[id number]
--- NOTE | 2019-09-25 19:48 | NUR ---
RECEIVED PT IN BED AOX3 .PT DENIES PAIN DR SETH HAS SEEN THE PT TELE 18 SHOWS AFIB .WOUND CARE CONSULTED .CALL LIGHT WITH IN REACH ,CONTINUE TO MONITOR
[2019-09-25] MEDS: PRAVASTATIN 20 MG TAB PO SCH (21:40)
[2019-09-26] VITALS (8 sets, daily range): BP systolic 112–157; BP diastolic 60–85
--- NOTE | 2019-09-26 05:25 | NUR ---
PT RESTING C/O PAIN TO THE LOWER LEGS F/C INTACT DRAINING CLEAR YELLOW URINE .CONTINUE TO MONITOR
[2019-09-26 05:27] LABS: BASOPHILS # (AUTO) 0.1 (0.0-0.1); BASOPHILS % 0.8 % (0.0-1.0); EOSINOPHILS # (AUTO) 0.3 (0.0-0.4); EOSINOPHILS % 3.8 % (0.0-6.0); HEMATOCRIT 30.2 % (34.2-44.1); HEMOGLOBIN 9.2 g/dL (12.0-16.0); LYMPHOCYTES # (AUTO) 1.8 (1.0-3.2); LYMPHOCYTES % 25.8 % (18.0-39.1); MEAN CORPUSCULAR HEMOGLOBIN 32.2 pg (28-32); MEAN CORPUSCULAR HGB CONC 30.5 g/dL (31-35); MEAN CORPUSCULAR VOLUME 105.6 fL (81-99); MONOCYTES # (AUTO) 0.7 (0.2-0.8); MONOCYTES % 9.2 % (4.4-11.3); NEUTROPHILS # (AUTO) 4.2 (2.1-6.9); NEUTROPHILS % 59.7 % (38.7-80.0); PLATELET COUNT 218 x10e3/uL (140-360); RED BLOOD COUNT 2.86 x10e6/uL (3.6-5.1); RED CELL DISTRIBUTION WIDTH 16.9 % (11.7-14.4)
[2019-09-26 06:00] LABS: ALBUMIN 2.8 g/dL (3.5-5.0); ALBUMIN/GLOBULIN RATIO 0.6 (0.8-2.0); ANION GAP 11.5 mmol/L (8-16); CALCIUM 8.5 mg/dL (8.4-10.2); CHOL/HDL RATIO 3.3 (3.0-3.6); CREATININE, SERUM 1.56 mg/dL (0.57-1.11); POTASSIUM 4.5 mmol/L (3.5-5.1)
[2019-09-26 06:42] LABS: FERRITIN 121.45 ng/mL (4.63-204.00)
--- NOTE | 2019-09-26 07:17 | NUR ---
BEDSIDE REPORT GIVEN TO THE ONCOMING NURSE
[2019-09-26] MEDS: INSULIN LISPRO 100 UNIT/1 ML 3ML VIAL SQ SCH ×4 (07:30→21:20)
[2019-09-26] MEDS: CARVEDILOL 12.5 MG TAB PO SCH ×2 (08:58→16:23)
[2019-09-26] MEDS: GABAPENTIN 300 MG CAP PO SCH ×2 (08:59→16:23)
[2019-09-26] MEDS: INSULIN GLARGINE 100 UNITS/ML VIAL SQ SCH ×2 (08:59→21:20)
[2019-09-26] MEDS: DULOXETINE HCL 30 MG DELAYED RELEASE PO SCH (08:59)
[2019-09-26] MEDS: LACTOBACILLUS ACIDOPHILUS CAPSULE PO SCH ×2 (08:59→16:23)
[2019-09-26] MEDS: OMEPRAZOLE 20 MG CAP PO SCH (08:59)
[2019-09-26] MEDS: EZETIMIBE 10 MG TAB PO SCH (08:59)
[2019-09-26] MEDS ORDERED: FUROSEMIDE 40 MG TAB PO SCH (09:00)
[2019-09-26] MEDS: NYSTATIN 15 GM POWDER UD BTL TOP SCH ×2 (09:00→16:24)
[2019-09-26] MEDS ORDERED: CLOPIDOGREL BISULFATE 75 MG TAB PO ONE ×2 (10:40→22:00)
[2019-09-26 12:03] LABS: CREATININE,URINE RANDOM 106.73 mg/dL (47-110); TOTAL PROTEIN, URINE 68.7 mg/dL (1-14)
[2019-09-26] MEDS ORDERED: CARVEDILOL12.5 MG PO (12:04)
[2019-09-26] MEDS ORDERED: ALDACTONE25 MG PO (12:04)
[2019-09-26] MEDS ORDERED: LASIX40 MG PO (12:04)
[2019-09-26] MEDS ORDERED: LISINOPRIL2.5 MG PO (12:04)
[2019-09-26] MEDS ORDERED: CYMBALTA30 MG PO (12:04)
[2019-09-26] MEDS ORDERED: NOVOLOG MI100 UNIT/1 SC (12:04)
[2019-09-26] MEDS ORDERED: ELIQUIS5 MG PO (12:04)
[2019-09-26] MEDS ORDERED: GABAPENTIN300 MG PO (12:04)
[2019-09-26] MEDS ORDERED: PRAVASTATIN SOD80 MG PO (12:04)
[2019-09-26] MEDS ORDERED: LEVEMIR100 UNIT/1 SC (12:04)
[2019-09-26] MEDS ORDERED: ZETIA10 MG PO (12:04)
[2019-09-26] MEDS: TRAMADOL HCL 50 MG TAB PO PRN (12:32)
[2019-09-26] MEDS: IRON SUCROSE 100 MG in SODIUM CHLORIDE 0.9% 100 ML 100 ML IV SCH (13:35)
--- NOTE | 2019-09-26 15:08 | Diagnostic Imaging Report ---
Ultrasound guided thoracentesis History: Left pleural effusion Technique: Written informed consent was obtained after discussing risks, benefits, and alternatives of the procedure with the patient. Patient was brought to the ultrasound suite and placed on the table in upright position. Pre-procedural ultrasound demonstrates a left pleural effusion. Suitable percutaneous access site was chosen in the posterior left chest. Overlying skin was prepared and draped in the usual sterile fashion. Planned needle tract was anesthetized with dilute Lidocaine for local anesthesia. Using sonographic guidance, an 5 Macanese UA needle was advanced into the left pleural effusion. [place] [employer] images saved in the patient's medical record. Needle was removed, and catheter was advanced. Subsequently, 1.2 L of clear yellow fluid was evacuated. Catheter was removed. Hemostasis achieved at puncture site by direct compression. The patient tolerated the procedure well. There were no complications. Post procedure chest radiograph was ordered. Impression: Technically successful sonographic guided left thoracentesis with evacuation of 1.2 L of fluid. Signed by: Dr. Gerard Esteves MD on 09/26/2019 3:05 PM
--- NOTE | 2019-09-26 15:10 | NUR ---
Patient arrived back to the floor from thoracentesis. She is awake alert x 2. Patient has no complaints at this time, call light in reach, bed alarm on.
--- NOTE | 2019-09-26 15:20 | Diagnostic Imaging Report ---
EXAM: CHEST SINGLE (NOT PORTABLE) DATE: 09/26/2019 2:50 PM INDICATION: Status post left thoracentesis COMPARISON: 09/25/2019 Impression: There has been interval reduction of left-sided pleural fluid and improved aeration of the left lung base. There is no evidence for significant and pneumothorax status post thoracentesis. Again identified are grossly stable appearing bibasilar and perihilar opacities. There is no evidence for new large focal consolidation. The cardiomediastinal silhouette is stable in appearance. No acute osseous abnormalities identified. Signed by: Dr. Gerard Esteves MD on 09/26/2019 3:16 PM
--- NOTE | 2019-09-26 15:38 | NUR ---
Paged Dr. Fink following patient's thoracentesis per his orders. Waiting residential monitor back
[2019-09-26] MEDS: FUROSEMIDE 40 MG TAB PO SCH (16:23)
[2019-09-26] MEDS: CEFTRIAXONE SOD 1 GM/NS 50 ML 50 ML IV SCH (16:23)
[2019-09-26] MEDS: HYDRALAZINE HCL 25 MG TAB PO SCH ×2 (16:23→21:20)
[2019-09-26 16:50] LABS: RBC,BODY FLUID 298 cells/uL; WBC,BODY FLUID 33 cells/uL
[2019-09-26 16:51] LABS: BODY FLUID APPEARANCE SL.CLOUDY; BODY FLUID COLOR STRAW; BODY FLUID TYPE PLEURAL
[2019-09-26] MEDS: VANCOMYCIN 1GM/NS 250 ML 250 ML IV SCH (16:54)
--- NOTE | 2019-09-26 17:10 | NUR ---
Dr. Fink notified of 1.2 liters removed from thoracentesis
[2019-09-26 18:10] LABS: LYMPHOCYTES,BODY FLUID 84 %; MONO/MACROPHG,BODY FLUID 8 %; NEUTROPHILS,BODY FLUID 8 %
--- NOTE | 2019-09-26 19:05 | NUR ---
Pt visited in room during nursing rounds. Patient alert and oriented x2 (i.e. pt tends to forget recent information). Patient very weak especially on bilateral lower extremities. Pt always prefer to lay in bed slanted to the left with the legs dangling on side of the bed. BLE being elevated with pillows but patient often takes them off. Pt on lasix IV as scheduled. Wounds noted on both legs. Call coronado within reach. Will monitor closely.
--- NOTE | 2019-09-26 20:10 | Consultation ---
DATE OF CONSULTATION: 09/26/2019 REASON FOR CONSULTATION: Cellulitis of the leg. HISTORY OF PRESENT ILLNESS: This patient is very pleasant 73-year-old female, who comes in with redness and swelling of her left lower extremity. The patient does not recall any specific trauma. The patient have redness and swelling in the foot and went up all the way to the leg affecting her left leg. The patient does have underlying history of hypertension, diabetes mellitus, obesity, congestive heart failure. PAST SURGICAL HISTORY: As mentioned above. The patient apparently has history of hypertension, diabetes mellitus, congestive heart failure, CVA in 2009, atrial fibrillation, chronic bilateral lower extremities edema, followed by Aline Coto. The patient apparently has an ulcer on her foot, which she has been taking care as outpatient because it progressively worse. The patient was bed ridden for the last few months from debility. She does have underlying history of diabetes mellitus, severe organ damage, , congestive heart failure, atrial fibrillation, bilateral lower extremities edema. FAMILY HISTORY: Diabetes mellitus. ALLERGIES: CODEINE. SOCIAL HISTORY: There is no smoking, drug abuse, or alcohol abuse. REVIEW OF SYSTEMS: At present time. HEENT: Negative. PULMONARY: Negative. CARDIAC: Negative. : Negative. SKIN: There is no other rashes except on the leg. The patient has been seen by Cardiology and Renal. Blood cultures are pending. Her white count is 6.16, hemoglobin 9.1, hematocrit 29, platelets 206. Sodium 137, potassium 4.5, creatinine 1.55. MEDICATIONS: The patient was currently on: 1. Insulin probiotic. 2. Zetia. 3. Prilosec. 4. Neurontin. 5. Ceftriaxone. 6. Vancomycin. LABORATORY DATA: Sodium 137, potassium 4.5, creatinine 1.56, and glucose of 280. PHYSICAL EXAMINATION: GENERAL: He is currently alert, oriented, follows commands. VITAL SIGNS: Stable, currently afebrile. HEENT: She is not icteric. NECK: Supple. CHEST: Few crackles. COR: S1, S2. ABDOMEN: Soft. Bowel sounds present. EXTREMITIES: No tenderness to the leg. There is erythema and edema involving the left leg. IMPRESSION: 1. Cellulitis of the left upper extremity. 2. Congestive heart failure. I think a chest x-ray, which was read as pneumonia probably reflect fluid overload and early sepsis. 3. Chronic kidney disease. 4. Acute on chronic congestive heart failure. 5. Acute kidney injury, probably underlying chronic kidney disease. PLAN: Continue with Rocephin and vancomycin and we will follow. MD TIMUR Luciano/MODL /[id number]
[2019-09-26] MEDS ORDERED: HEPARIN SOD (PORCINE) 5,000 UNIT/ML VIAL SC SCH (21:00)
[2019-09-26] MEDS: PRAVASTATIN 20 MG TAB PO SCH (21:20)
[2019-09-27] VITALS (8 sets, daily range): BP systolic 110–130; BP diastolic 58–77
[2019-09-27] MEDS: TRAMADOL HCL 50 MG TAB PO PRN ×3 (02:13→23:45)
[2019-09-27 05:32] LABS: BASOPHILS % 0.5 % (0.0-1.0); EOSINOPHILS # (AUTO) 0.3 (0.0-0.4); EOSINOPHILS % 4.1 % (0.0-6.0); HEMATOCRIT 28.7 % (34.2-44.1); HEMOGLOBIN 8.9 g/dL (12.0-16.0); LYMPHOCYTES # (AUTO) 1.1 (1.0-3.2); LYMPHOCYTES % 17.3 % (18.0-39.1); MEAN CORPUSCULAR HEMOGLOBIN 32.5 pg (28-32); MEAN CORPUSCULAR VOLUME 104.7 fL (81-99); MONOCYTES # (AUTO) 0.5 (0.2-0.8); MONOCYTES % 7.6 % (4.4-11.3); NEUTROPHILS # (AUTO) 4.6 (2.1-6.9); PLATELET COUNT 196 x10e3/uL (140-360); RED BLOOD COUNT 2.74 x10e6/uL (3.6-5.1); RED CELL DISTRIBUTION WIDTH 16.9 % (11.7-14.4)
[2019-09-27 05:46] LABS: ANION GAP 10.1 mmol/L (8-16); CALCIUM 8.5 mg/dL (8.4-10.2); CREATININE, SERUM 1.12 mg/dL (0.57-1.11); POTASSIUM 4.1 mmol/L (3.5-5.1)
[2019-09-27] MEDS: INSULIN LISPRO 100 UNIT/1 ML 3ML VIAL SQ SCH ×4 (07:30→23:26)
[2019-09-27] MEDS: FUROSEMIDE 40 MG TAB PO SCH (08:25)
[2019-09-27] MEDS: HYDRALAZINE HCL 25 MG TAB PO SCH ×3 (08:25→23:47)
[2019-09-27] MEDS: OMEPRAZOLE 20 MG CAP PO SCH (08:25)
[2019-09-27] MEDS: EZETIMIBE 10 MG TAB PO SCH (08:25)
[2019-09-27] MEDS: GABAPENTIN 300 MG CAP PO SCH ×2 (08:25→17:02)
[2019-09-27] MEDS: LACTOBACILLUS ACIDOPHILUS CAPSULE PO SCH ×2 (08:25→17:02)
[2019-09-27] MEDS: CLOPIDOGREL BISULFATE 75 MG TAB PO SCH (08:25)
[2019-09-27] MEDS: DULOXETINE HCL 30 MG DELAYED RELEASE PO SCH (08:25)
[2019-09-27] MEDS: CARVEDILOL 12.5 MG TAB PO SCH ×2 (08:25→17:02)
[2019-09-27] MEDS: INSULIN GLARGINE 100 UNITS/ML VIAL SQ SCH ×2 (08:26→23:26)
[2019-09-27] MEDS: BALSAM PERU/CASTOR OIL 60 GM OINT...G. TP SCH (09:00)
[2019-09-27] MEDS: COLLAGENASE 5 GM TUBE TP SCH (09:00)
[2019-09-27] MEDS: NYSTATIN 15 GM POWDER UD BTL TOP SCH ×2 (09:00→17:02)
[2019-09-27] MEDS ORDERED: FUROSEMIDE INJ 10 MG/ML 4 ML VIAL IV SCH ×2 (09:30→21:00)
[2019-09-27] MEDS: IRON SUCROSE 100 MG in SODIUM CHLORIDE 0.9% 100 ML 100 ML IV SCH (09:52)
[2019-09-27] MEDS ORDERED: ENOXAPARIN SOD INJ 40 MG/0.4 ML SYR SC SCH (10:30)
--- NOTE | 2019-09-27 11:32 | History and Physical ---
I had lengthy discussion with the patient's son over the phone and with the patient also but more with the son, explained the grave situation of his mother. She definitely does have ischemic cardiomyopathy with very severe advanced congestive heart failure. This by itself will lead to high mortality morbidity. In addition to that, she is very symptomatic. She got anemia. She got renal insufficiency. She got diabetes mellitus, severe end-organ damage. She got very severe peripheral arterial vascular disease with resting pain of the left lower extremity and left foot and foreleg. There are ulcers are not healing. She is in severe pain. She does have definitely several comorbid condition. The options are discussed. This will be a salvage angiogram to diagnose the extent of her disease. Even if successful intervention is visible, it will help her symptoms and may be to lower the level of amputation when it is done. The questions are answered. Poor prognosis is explained. It is the patient and her family to make a decision between just hospice care or to proceed with intervention and then subsequent amputation. Hopefully, we will lower the level of amputation. All this discussed and explained poor prognosis. MD JAIMEE Khoury/DEISYL /[id number]
[2019-09-27] MEDS: CEFTRIAXONE SOD 1 GM/NS 50 ML 50 ML IV SCH (15:30)
[2019-09-27] MEDS: VANCOMYCIN 1GM/NS 250 ML 250 ML IV SCH (17:02)
[2019-09-27] MEDS: PRAVASTATIN 20 MG TAB PO SCH (23:47)
[2019-09-28] VITALS (13 sets, daily range): BP systolic 95–123; BP diastolic 51–71
[2019-09-28] MEDS: INSULIN LISPRO 100 UNIT/1 ML 3ML VIAL SQ SCH ×4 (07:30→21:41)
[2019-09-28 07:52] LABS: BASOPHILS % 0.6 % (0.0-1.0); EOSINOPHILS # (AUTO) 0.2 (0.0-0.4); EOSINOPHILS % 3.4 % (0.0-6.0); HEMATOCRIT 29.1 % (34.2-44.1); HEMOGLOBIN 8.9 g/dL (12.0-16.0); LYMPHOCYTES # (AUTO) 1.1 (1.0-3.2); MEAN CORPUSCULAR HEMOGLOBIN 31.8 pg (28-32); MEAN CORPUSCULAR HGB CONC 30.6 g/dL (31-35); MEAN CORPUSCULAR VOLUME 103.9 fL (81-99); MONOCYTES # (AUTO) 0.6 (0.2-0.8); NEUTROPHILS % 72.3 % (38.7-80.0); PLATELET COUNT 179 x10e3/uL (140-360); RED CELL DISTRIBUTION WIDTH 16.8 % (11.7-14.4)
[2019-09-28 08:16] LABS: INR 1.28; PROTHROMBIN TIME 16.8 seconds (11.9-14.5)
[2019-09-28 08:31] LABS: ALBUMIN 2.8 g/dL (3.5-5.0); ALBUMIN/GLOBULIN RATIO 0.7 (0.8-2.0); ANION GAP 11.2 mmol/L (8-16); CALCIUM 8.2 mg/dL (8.4-10.2); CREATININE, SERUM 1.05 mg/dL (0.57-1.11); POTASSIUM 4.2 mmol/L (3.5-5.1)
[2019-09-28] MEDS: CARVEDILOL 12.5 MG TAB PO SCH ×2 (09:00→16:24)
[2019-09-28] MEDS: LACTOBACILLUS ACIDOPHILUS CAPSULE PO SCH ×2 (09:00→16:24)
[2019-09-28] MEDS: GABAPENTIN 300 MG CAP PO SCH ×2 (09:00→16:24)
[2019-09-28] MEDS: HYDRALAZINE HCL 25 MG TAB PO SCH ×3 (09:00→21:44)
[2019-09-28] MEDS: CLOPIDOGREL BISULFATE 75 MG TAB PO SCH (09:00)
[2019-09-28] MEDS: INSULIN GLARGINE 100 UNITS/ML VIAL SQ SCH ×2 (09:00→21:41)
[2019-09-28] MEDS: NYSTATIN 15 GM POWDER UD BTL TOP SCH ×2 (09:24→16:24)
[2019-09-28] MEDS: SODIUM CHLORIDE 0.9% 1000ML 1,000 ML IV SCH (10:07)
--- NOTE | 2019-09-28 10:20 | NUR ---
SPOKE WITH SON AND PT ABOUT SERVICES FOR A WILL. GAVE PAMPHLETS AND EDUCATED ABOUT DIFFERENT TYPES OF BRONSON.
--- NOTE | 2019-09-28 10:36 | NUR ---
Taken for procedure. No s/s of acute distress noted.
[2019-09-28] MEDS ORDERED: MIDAZOLAM HCL 2 MG/2 ML VIAL ONE (10:46)
[2019-09-28] MEDS ORDERED: HEPARIN SOD/SOD CHLORIDE 2,000 ML ONE (10:47)
[2019-09-28] MEDS ORDERED: FENTANYL CITRATE/PF 100MCG/2 ML INJ ONE (10:47)
[2019-09-28] MEDS ORDERED: LIDOCAINE HCL 2% LOCAL 20 ML VIAL ONE (10:47)
[2019-09-28] MEDS ORDERED: IOPAMIDOL 300MG/ML 100 ML INFUS..BTL IV ONE ×2 (10:47→11:13)
[2019-09-28] MEDS ORDERED: SODIUM CHLORIDE 0.9% 1000ML 1,000 ML ONE (10:48)
[2019-09-28] MEDS ORDERED: CLOPIDOGREL BISULFATE 75 MG TAB ONE (11:42)
[2019-09-28] MEDS ORDERED: ASPIRIN 325 MG TAB ONE (11:42)
--- NOTE | 2019-09-28 12:00 | NUR ---
FSBG 68. [place] juice given. Patient eating lunch. Will continue to monitor.
[2019-09-28] MEDS: COLLAGENASE 5 GM TUBE TP SCH (12:33)
[2019-09-28] MEDS: BALSAM PERU/CASTOR OIL 60 GM OINT...G. TP SCH (12:33)
[2019-09-28] MEDS: DULOXETINE HCL 30 MG DELAYED RELEASE PO SCH (13:19)
[2019-09-28] MEDS: IRON SUCROSE 100 MG in SODIUM CHLORIDE 0.9% 100 ML 100 ML IV SCH (13:19)
[2019-09-28] MEDS: EZETIMIBE 10 MG TAB PO SCH (13:19)
[2019-09-28] MEDS: TRAMADOL HCL 50 MG TAB PO PRN ×2 (13:35→23:03)
[2019-09-28] MEDS: CEFTRIAXONE SOD 1 GM/NS 50 ML 50 ML IV SCH (16:23)
[2019-09-28] MEDS: VANCOMYCIN 1GM/NS 250 ML 250 ML IV SCH (17:30)
[2019-09-28] MEDS: FUROSEMIDE 40 MG TAB PO SCH (18:00)
--- NOTE | 2019-09-28 18:43 | Operative Report ---
DATE OF PROCEDURE: 09/28/2019 SURGEON: Meera Fink MD PROCEDURE PERFORMED: 1. Ultrasound-guided access of the right common femoral artery. 2. Abdominal aortogram with lower extremity runoff. 3. Contralateral 3rd order angiography of the left SFA. 4. Additional contralateral 4th order angiography of the left popliteal artery. 5. GRAVEDIGGER with drug-eluting balloon angioplasty and stenting of the left SFA. 6. Angio-Seal closure of right common femoral arteriotomy. INDICATION FOR PROCEDURE: A 73-year-old lady with history of hypertension, hypercholesteremia, type 2 diabetes complications, morbid obesity, CHF systolic with presumed advanced ischemic cardiomyopathy presenting with left lower extremity ischemic rest pain, early gangrenous changes and nonhealing ulceration of the left lower extremity. This is a high-risk procedure and limb salvage and is done urgently for limb saving purposes. TECHNICAL DETAILS: After risks, benefits, pros, cons of today's procedure were explained, the patient agreed to proceed. She was brought to the cardiac catheterization laboratory. The right groin was prepped and draped in usual sterile fashion. A 1% lidocaine solution was used to numb the right groin region. Access to the right femoral artery was obtained utilizing ultrasound guidance. A short 4- Lebanese femoral sheath was placed. We initially went up with a 4-Lebanese pigtail TR catheter placed into the abdominal aorta and utilizing hand injection with digital subtraction angiography, abdominal aortogram with bilateral iliofemoral angiography was performed. Next, we utilized 0.035 Terumo Advantage Glidewire and we crossed it over into the contralateral left SFA and placed the pigtail TR catheter there and performed left lower extremity runoff. This revealed total occlusion of the mid left SFA. At that point in time, we decided to proceed with intervention utilizing the 0.035 Terumo Advantage Glidewire across. We went over with a 6-Lebanese Terumo destination sheath and placed into the contralateral left SFA. IV heparin was given for supplemental anticoagulation. Utilizing 0.035 support Seeker catheter and the [place] Advantage Glidewire were able to punch through the left SFA total occlusion. The Seeker catheter was placed into the left popliteal artery and an additional angiography through this Seeker catheter was performed revealing true lumen location and good visualization of the infrapopliteal vessels. Due to the patient's lack of cooperation, we decided to keep the procedure simple. We took a 0.014 300 cm grand slam wire and placed into the left popliteal artery to serve as the rail of our intervention. We pre-dilated with an Ultra 1st 5.0 x 100 mm balloon up to 8 atmospheres of pressure. This revealed haziness of the midleft 100% lesion site, so we decided to cover with a stent. We took a LifeStent 6.0 x 100 mm self expanding stent and deployed it from the left adductor canal proximal to the mid left SFA. We then postdilated with a Lutonix 6.0 x 120 mm balloon up to 3 atmospheres of pressure for 3 minutes. Final angiography revealed 0% residual stenosis with normal flow and no complications. At that point in time, we decided to conclude the case. The 6-Lebanese destination sheath was removed and we successfully deployed a 6-Lebanese Angio-Seal closure device achieving hemostasis. COMPLICATIONS: None. ESTIMATED BLOOD LOSS: Minimal. FINDINGS: 1. Abdominal aorta was patent, gives rise to the bilateral common iliac arteries. 2. The bilateral common iliac arteries and bilateral external iliac arteries are just mild luminal irregularities. 3. The bilateral common femoral artery has mild diffuse disease. 4. The left SFA is a 20% proximal occlusion followed by 100% total occlusion in the mid left SFA with flow being reconstituted into the left popliteal artery via collaterals. 5. Left popliteal artery is with mild irregularities. 6. Left anterior tibial artery is occluded proximally. 7. Left TP trunk has 80% focal stenosis. 8. Left peroneal artery is a 1-vessel runoff to the foot and just mild diffuse disease. There is tibiocalcaneal collaterals going to the distal anterior and posterior tibial arteries. 9. Left posterior tibial artery is subtotal and occluded proximally. INTERVENTION SUMMARY: Successful treatment of the 100% total occluded mid left SFA with implantation of a LifeStent 6.0 x 120 mm balloon and was treated also with a Lutonix 6.0 x 120 mm drug-eluting balloon angioplasty resulting in 0% residual stenosis, normal flow. No complications. PLAN/RECOMMENDATIONS: 1. Aspirin and Plavix therapy. 2. Statin therapy. 3. Six-hour bedrest. 4. Aggressive risk factor modification and medical therapy. MD ADRIENNE Jain/WHIT /[id number] BROOKS
--- NOTE | 2019-09-28 19:06 | NUR ---
Report given to oncoming nurse of patient's status. No s/s of acute distress noted. Dressing to right groin clean,dry, and intact. Call light within reach. Addendum: 09/28/19 at 1908 by KARTHIK SALGUERO RN Using bedside commode. Jacinda GAN at bedside
[2019-09-28] MEDS: PRAVASTATIN 20 MG TAB PO SCH (21:44)
[2019-09-29] VITALS (8 sets, daily range): BP systolic 98–128; BP diastolic 51–76
[2019-09-29 05:39] LABS: BASOPHILS # (AUTO) 0.1 (0.0-0.1); BASOPHILS % 0.7 % (0.0-1.0); EOSINOPHILS # (AUTO) 0.2 (0.0-0.4); HEMATOCRIT 28.4 % (34.2-44.1); HEMOGLOBIN 8.8 g/dL (12.0-16.0); LYMPHOCYTES # (AUTO) 0.9 (1.0-3.2); LYMPHOCYTES % 12.2 % (18.0-39.1); MEAN CORPUSCULAR HEMOGLOBIN 32.5 pg (28-32); MEAN CORPUSCULAR VOLUME 104.8 fL (81-99); MONOCYTES # (AUTO) 0.7 (0.2-0.8); MONOCYTES % 8.9 % (4.4-11.3); NEUTROPHILS # (AUTO) 5.5 (2.1-6.9); NEUTROPHILS % 74.7 % (38.7-80.0); PLATELET COUNT 204 x10e3/uL (140-360); RED BLOOD COUNT 2.71 x10e6/uL (3.6-5.1)
[2019-09-29 05:59] LABS: ALBUMIN 2.7 g/dL (3.5-5.0); ALBUMIN/GLOBULIN RATIO 0.6 (0.8-2.0); ANION GAP 11.5 mmol/L (8-16); CALCIUM 8.4 mg/dL (8.4-10.2); CREATININE, SERUM 1.07 mg/dL (0.57-1.11); POTASSIUM 4.5 mmol/L (3.5-5.1)
--- NOTE | 2019-09-29 07:00 | NUR ---
BESIDE SHIFT REPORT RECEIVED FROM FOUNTAIN WORKER NURSE. PT DENIES NEEDS AT THIS TIME.
[2019-09-29] MEDS: SODIUM CHLORIDE 0.9% 1000ML 1,000 ML IV SCH ×2 (07:05→07:11)
[2019-09-29] MEDS: FUROSEMIDE 40 MG TAB PO SCH ×2 (07:10→18:42)
[2019-09-29] MEDS: INSULIN LISPRO 100 UNIT/1 ML 3ML VIAL SQ SCH ×4 (07:30→22:39)
[2019-09-29] MEDS: HYDRALAZINE HCL 25 MG TAB PO SCH ×3 (07:57→22:34)
[2019-09-29] MEDS: CARVEDILOL 12.5 MG TAB PO SCH ×2 (07:58→16:50)
[2019-09-29] MEDS: LACTOBACILLUS ACIDOPHILUS CAPSULE PO SCH ×2 (08:47→16:50)
[2019-09-29] MEDS: EZETIMIBE 10 MG TAB PO SCH (08:47)
[2019-09-29] MEDS: DULOXETINE HCL 30 MG DELAYED RELEASE PO SCH (08:47)
[2019-09-29] MEDS: GABAPENTIN 300 MG CAP PO SCH ×2 (08:47→16:50)
[2019-09-29] MEDS: CLOPIDOGREL BISULFATE 75 MG TAB PO SCH (08:47)
[2019-09-29] MEDS: INSULIN GLARGINE 100 UNITS/ML VIAL SQ SCH ×2 (08:48→22:39)
--- NOTE | 2019-09-29 08:52 | NUR ---
rosenbaum cath in place, clear/yellow urine draining to collection bag. cath secured to leg with stat lock.
[2019-09-29] MEDS: BALSAM PERU/CASTOR OIL 60 GM OINT...G. TP SCH (09:00)
[2019-09-29] MEDS ORDERED: ASPIRIN 81 MG ENTERIC COATED PO SCH (09:00)
[2019-09-29] MEDS: COLLAGENASE 5 GM TUBE TP SCH (09:00)
[2019-09-29] MEDS: NYSTATIN 15 GM POWDER UD BTL TOP SCH ×2 (09:00→18:42)
[2019-09-29] MEDS: APIXAB 2.5 MG TABLET PO SCH ×2 (10:23→16:50)
[2019-09-29] MEDS: TRAMADOL HCL 50 MG TAB PO PRN ×2 (12:44→22:00)
[2019-09-29] MEDS: CEFTRIAXONE SOD 1 GM/NS 50 ML 50 ML IV SCH (15:16)
[2019-09-29] MEDS: VANCOMYCIN 1GM/NS 250 ML 250 ML IV SCH (16:49)
--- NOTE | 2019-09-29 19:15 | NUR ---
Received patient from day nurse, patient is stable. safety and fall precautions maintained at this time: bed in lowest position and lcoked, needed items beside bed and call coronado placed close to patient, patient is currently stable will continue to monitor.
[2019-09-29] MEDS: PRAVASTATIN 20 MG TAB PO SCH (22:34)
[2019-09-30] VITALS (8 sets, daily range): BP systolic 111–128; BP diastolic 54–84
--- NOTE | 2019-09-30 06:55 | NUR ---
patient endorsed to next shift for continuity of care.
[2019-09-30] MEDS: FUROSEMIDE 40 MG TAB PO SCH ×2 (06:58→17:16)
--- NOTE | 2019-09-30 07:00 | NUR ---
BESIDE SHIFT REPORT RECEIVED FROM SLIVER CUTTER NURSE. PT DENIES NEEDS AT THIS TIME.
[2019-09-30] MEDS: INSULIN LISPRO 100 UNIT/1 ML 3ML VIAL SQ SCH ×4 (07:30→21:43)
[2019-09-30] MEDS: APIXAB 2.5 MG TABLET PO SCH ×2 (08:15→16:10)
[2019-09-30] MEDS: LACTOBACILLUS ACIDOPHILUS CAPSULE PO SCH ×2 (08:15→16:10)
[2019-09-30] MEDS: CARVEDILOL 12.5 MG TAB PO SCH ×2 (08:15→16:10)
[2019-09-30] MEDS: HYDRALAZINE HCL 25 MG TAB PO SCH ×3 (08:15→21:41)
[2019-09-30] MEDS: GABAPENTIN 300 MG CAP PO SCH ×2 (08:15→16:10)
[2019-09-30] MEDS: NYSTATIN 15 GM POWDER UD BTL TOP SCH ×2 (08:15→16:10)
[2019-09-30] MEDS: DULOXETINE HCL 30 MG DELAYED RELEASE PO SCH (08:15)
[2019-09-30] MEDS: BALSAM PERU/CASTOR OIL 60 GM OINT...G. TP SCH (08:15)
[2019-09-30] MEDS: EZETIMIBE 10 MG TAB PO SCH (08:15)
[2019-09-30] MEDS: CLOPIDOGREL BISULFATE 75 MG TAB PO SCH (08:15)
[2019-09-30] MEDS: COLLAGENASE 5 GM TUBE TP SCH (08:15)
[2019-09-30] MEDS: INSULIN GLARGINE 100 UNITS/ML VIAL SQ SCH (08:19)
[2019-09-30] MEDS: CEFTRIAXONE SOD 1 GM/NS 50 ML 50 ML IV SCH (16:10)
[2019-09-30] MEDS: VANCOMYCIN 1GM/NS 250 ML 250 ML IV SCH (16:10)
--- NOTE | 2019-09-30 17:00 | NUR ---
WOUND CARE PERFORMED TO PT. LEFT FOOT HEAL STILL SLOUGHING WITH A STRONG ODER.
--- NOTE | 2019-09-30 17:58 | NUR ---
PER DR. WATSON, THIS NURSE SPOKE TO PT'S SON ABOUT PT POSSIBLY DISCHARGING HOME TOMORROW ON ORAL ANTIBIOTICS. AYDEN WAS CONCERNED ABOUT HOME HEALTH COMING OUT FOR WOUND CARE.
[2019-09-30] MEDS: PRAVASTATIN 20 MG TAB PO SCH (21:41)
[2019-10-01 00:10] VITALS: BP 123/53
[2019-10-01 05:47] LABS: BASOPHILS # (AUTO) 0.1 (0.0-0.1); BASOPHILS % 0.8 % (0.0-1.0); EOSINOPHILS # (AUTO) 0.2 (0.0-0.4); EOSINOPHILS % 2.7 % (0.0-6.0); HEMATOCRIT 28.1 % (34.2-44.1); HEMOGLOBIN 8.8 g/dL (12.0-16.0); LYMPHOCYTES # (AUTO) 1.1 (1.0-3.2); LYMPHOCYTES % 16.9 % (18.0-39.1); MEAN CORPUSCULAR HEMOGLOBIN 32.7 pg (28-32); MEAN CORPUSCULAR HGB CONC 31.3 g/dL (31-35); MEAN CORPUSCULAR VOLUME 104.5 fL (81-99); MONOCYTES # (AUTO) 0.7 (0.2-0.8); NEUTROPHILS # (AUTO) 4.6 (2.1-6.9); NEUTROPHILS % 69.3 % (38.7-80.0); PLATELET COUNT 182 x10e3/uL (140-360); RED BLOOD COUNT 2.69 x10e6/uL (3.6-5.1); RED CELL DISTRIBUTION WIDTH 16.9 % (11.7-14.4)
[2019-10-01 05:50] LABS: ALBUMIN 2.6 g/dL (3.5-5.0); ALBUMIN/GLOBULIN RATIO 0.6 (0.8-2.0); ANION GAP 14.2 mmol/L (8-16); CALCIUM 8.5 mg/dL (8.4-10.2); CREATININE, SERUM 0.99 mg/dL (0.57-1.11); POTASSIUM 4.2 mmol/L (3.5-5.1)
[2019-10-01 05:58] VITALS: BP 122/60
--- NOTE | 2019-10-01 06:55 | NUR ---
Patient endorsed to next shift for continuity of care.
--- NOTE | 2019-10-01 08:00 | NUR ---
PT AWAKE AND ALERT. RESP EVEN WITHOUT DISTRESS.
[2019-10-01] MEDS: INSULIN LISPRO 100 UNIT/1 ML 3ML VIAL SQ SCH ×2 (08:30→12:26)
[2019-10-01 08:54] VITALS: BP 104/51
[2019-10-01] MEDS: HYDRALAZINE HCL 25 MG TAB PO SCH ×2 (09:00→15:00)
[2019-10-01] MEDS ORDERED: COLLAGENASE OINTMENT 30 GM TUBE TP SCH (09:00)
[2019-10-01] MEDS: CARVEDILOL 12.5 MG TAB PO SCH ×2 (09:08→17:00)
[2019-10-01] MEDS: EZETIMIBE 10 MG TAB PO SCH (09:09)
[2019-10-01] MEDS: APIXAB 2.5 MG TABLET PO SCH ×2 (09:09→17:00)
[2019-10-01] MEDS: GABAPENTIN 300 MG CAP PO SCH ×2 (09:09→17:00)
[2019-10-01] MEDS: CLOPIDOGREL BISULFATE 75 MG TAB PO SCH (09:09)
[2019-10-01] MEDS: DULOXETINE HCL 30 MG DELAYED RELEASE PO SCH (09:09)
[2019-10-01] MEDS: LACTOBACILLUS ACIDOPHILUS CAPSULE PO SCH ×2 (09:09→17:00)
--- NOTE | 2019-10-01 09:30 | NUR ---
DR. Barbara KING AT BEDSIDE.
[2019-10-01] MEDS: INSULIN GLARGINE 100 UNITS/ML VIAL SQ SCH (09:33)
--- NOTE | 2019-10-01 10:45 | NUR ---
Called pt's son Mahesh Galeano ([phone]) regarding home health and to obtain choice to resume services. Call went to voicemail. CM left message for Mr. Galeano to call back.
[2019-10-01] MEDS: NYSTATIN 15 GM POWDER UD BTL TOP SCH (11:00)
[2019-10-01] MEDS: BALSAM PERU/CASTOR OIL 60 GM OINT...G. TP SCH (11:00)
[2019-10-01 12:06] VITALS: BP 107/84
--- NOTE | 2019-10-01 14:00 | NUR ---
DR. WATSON AT BEDSIDE. NEW ORDERS TO DISCHARGE PT HOME.
--- NOTE | 2019-10-01 14:30 | NUR ---
SPOKE TO PTS SON. NOTIFIED OF DISCHARGE, PRESCRIPTIONS ORDERED, HOME HEALTH ARRANGED BY HOME HEALTH, PT TO F/U WITH PCP IN 1 WEEK. PT'S SON VOICED UNDERSTANDING. INSTRUCTED WILL DISCONTINUE COLEMAN CATH, PT WILL NEED TO VOID BEFORE DISCHARGE HOME.
[2019-10-01] MEDS ORDERED: PLAVIX75 MG PO (14:33)
[2019-10-01] MEDS ORDERED: DOXYCYCLINE HY100 MG PO (14:34)
[2019-10-01] MEDS ORDERED: CIPRO500 MG PO (14:35)
--- NOTE | 2019-10-01 14:55 | NUR ---
Received call back from pt's son Mahesh Townsend. He states that he would like to continue with same [facility] Staff. Choice letter placed in front of chart. Discussed IMM letter. He verbalized understanding. Signed copy placed in chart. Copy given to PAULO Davis to place with pt's discharge paperwork. SISI called and spoke with Mirella with intake at [facility]. Verified that pt currently on service with them. Informed her that we are anticipating dc today and CM will fax order and clinicals. Resumption order and clinicals faxed to [facility] at [phone] / P [phone].
--- NOTE | 2019-10-01 15:00 | NUR ---
[facility].
--- NOTE | 2019-10-01 15:20 | NUR ---
SPONGE BATH GIVEN. HL DC'ED. TELEMETRY REMOVED. PT TOLERATED WELL.
--- NOTE | 2019-10-01 16:15 | NUR ---
Spoke with Mirella with [facility] Staff. She verified that she received clinicals. States that she has already spoken to pt's son and that they are ready to see pt tomorrow.
--- NOTE | 2019-10-01 16:45 | NUR ---
Nutrition Screen Note RD Recommendation for Physician: - Continue 1800 ADA diet - Insulin and BG management per MD Plan of Care: RD following, monitoring for tolerance and adequacy Nutrition reason for involvement: follow up Primary Diagnose(s): cellulitis of L lower limb PMH: obesity, DM, HTN, CHF, CVA, Afib, non healing ulcer of lower extremities Ht: 69 in Wt: 260 lb BMI: 38.4 kg/m2 IBW: [address] Assessment: 09/30: Follow up. Pt with good appetite and intake, falling asleep easily at time of visit. Noted 100% meal intake per chart. Per nursing documentation sacral PU now a stage I. Pt pending discharge home with home health. Chart reviewed. Labs and meds reviewed, POC Gluc 91-171. Will continue to monitor. (09/24) 73 YOF admitted for cellulits of L lower leg with hx of DM and non healing ulcers. Pt seen today per MST screen and sacral PU II on admit. Pt slightly confused and slow to answer questions at time of visit. Pt reports UBW of "in the 240's", however she states she has lost weight and no "now in the 260's". 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 SYSTEMS APPLICATIONS PROGRAMMING LEAD at bedside reports 100% intake for lunch. Chart reviewed. Labs and meds reviewed, elevated BG noted- pt currently on lantus and lispro. Will continue to monitor. Current Diet: 1800 ADA Malnutrition Evaluation (09/25/19) The patient does not meet criteria for a specified degree of malnutrition at this time. Will re-evaluate at follow-up as appropriate. Energy intake: No poor intake reported Weight loss: No wt loss reported Fat loss: ample tricep skinfold thickness Muscle loss: none, shoulder round Supporting Evidence: Fluid accumulation: none observed Functional Status: not assessed Diet Education Needs Assessment: Diet education indicated, pt declined. Diet tolerance: 1800 ADA Nutrition Care Level: low Signed: Birgit Dunlap RD, LD, [facility]
--- NOTE | 2019-10-01 17:00 | NUR ---
PT VOIDED WITHOUT DIFFICULTY. PERICARE GIVEN.
--- NOTE | 2019-10-01 17:15 | NUR ---
CALLED PT'S SON NOTIFIED PT IS READY TO GO HOME. DISCHARGE INSTRUCTIONS GIVEN VIA PHONE. INSTRUCTED SON TO CALL NURSES STATION WHEN HE IS AT THE [facility]. STAFF WILL TRANSPORT PT TO THE CAR AND HE WILL SIGN DISCHARGE PAPERS. SON VOICED UNDERSTANDING.
--- NOTE | 2019-10-01 18:30 | NUR ---
PT DISCHARGED HOME VIA PRIVATE CAR. PT HAS ALL PERSONAL BELONGINGS. 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 RX GIVEN TO THE PATIENT'S SON AND WRITTEN DISCHARGE INSTRUCTIONS WELL.
--- NOTE | 2019-10-01 19:18 | Discharge Summary ---
PRIMARY CARE DOCTOR: Dr. Shilpa Rowe. FINAL DIAGNOSIS: Left foot cellulitis due to peripheral vascular disease, status post angioplasty. SECONDARY DIAGNOSES: 1. Chronic atrial fibrillation, on Eliquis. 2. Hypertension. 3. Acute systolic congestive heart failure exacerbation. 4. Stage 3 chronic kidney disease due to diabetes, stable. 5. Urinary tract infection, treated. CONSULTANTS: 1. Dr. Fink, Cardiovascular. 2. Dr. Holcomb, Nephrology. 3. Dr. Beaulieu, Cardiology. PROCEDURES/STUDIES PERFORMED: 1. Echocardiogram. 2. Arterial Doppler of both legs. 3. Venous Doppler of both legs, which did not show any DVT. 4. Angioplasty of the left leg. 5. Thoracentesis. 6. Renal ultrasound. HISTORY: Per H and P. HOSPITAL COURSE: The patient was admitted. IV antibiotic was started. For her pleural effusion, thoracentesis was done on the left side. It was transudative. The patient's breathing is better afterwards. Subsequently, angioplasty was done of the left leg. The patient did well. The patient will need Plavix for that. Cellulitis improved after revascularization. Per my discussion with Dr. Beaulieu yesterday, the patient will go home on another week of Cipro and doxycycline. The patient was seen and examined today. It took 32 minutes total to discharge this patient. CONDITION ON DISCHARGE: Improved. DISCHARGE MEDICATIONS: Please see medication reconciliation form. YiMD ELAINE Francisco/WHIT /[id number] cc: [facility]
== END 2019-10-01 18:49 | disposition home or self-care (01) | DRG 252 ==
LOC: ER 14:06 → ERHOLD 15:48 → MED/SURG2 17:10
PROVIDERS: ADMIT Internal Medicine; ATTEND Internal Medicine
PROC: 0W9B30Z Drainage of Left Pleural Cavity with Drainage Device, Percutaneous Approach (ICD-10-PCS; 2019-09-26)
PROC: 047L3D1 Dilation of Left Femoral Artery with Intraluminal Device, using Drug-Coated Balloon, Percutaneous Approach (ICD-10-PCS; principal; 2019-09-28)
PROC: B41D1ZZ Fluoroscopy of Aorta and Bilateral Lower Extremity Arteries using Low Osmolar Contrast (ICD-10-PCS; 2019-09-28)
DX: E11.59 Type 2 diabetes mellitus with other circulatory complications (principal); I50.23 Acute on chronic systolic (congestive) heart failure; J18.9 Pneumonia, unspecified organism; N17.9 Acute kidney failure, unspecified; L03.116 Cellulitis of left lower limb; L03.115 Cellulitis of right lower limb; N39.0 Urinary tract infection, site not specified; I13.0 Hypertensive heart and chronic kidney disease with heart failure and stage 1 through stage 4 chronic kidney disease, or unspecified chronic kidney disease; I48.20 Chronic atrial fibrillation, unspecified; N18.3 Chronic kidney disease, stage 3 (moderate); E11.621 Type 2 diabetes mellitus with foot ulcer; E66.9 Obesity, unspecified; L30.4 Erythema intertrigo; D63.8 Anemia in other chronic diseases classified elsewhere; Z88.5 Allergy status to narcotic agent; Z83.3 Family history of diabetes mellitus; Z82.49 Family history of ischemic heart disease and other diseases of the circulatory system; Z86.73 Personal history of transient ischemic attack (TIA), and cerebral infarction without residual deficits; E78.00 Pure hypercholesterolemia, unspecified; E11.22 Type 2 diabetes mellitus with diabetic chronic kidney disease; E11.21 Type 2 diabetes mellitus with diabetic nephropathy; Z79.01 Long term (current) use of anticoagulants; Z68.38 Body mass index [BMI] 38.0-38.9, adult; Z79.4 Long term (current) use of insulin; B35.1 Tinea unguium; E11.65 Type 2 diabetes mellitus with hyperglycemia; R53.81 Other malaise
CPT/HCPCS: 32555; 36247; 36415; 37221; 51700; 71045; 74470; 75625; 75710; 76770; 80048; 80053; 80061; 80202; 80307; 81001; 82570; 82728; 82948; 83540; 83615; 83735; 83880; 83986; 84156; 84157; 84443; 84466; 85007; 85025; 85027; 85610; 85730; 87040; 88305; 89051; 93005; 93306; 93925; 93970; 96372; 99152; 99153; 99251; 99284; C1760; C1769; C1887; C2623; J0696; J1450; J1644; J1650; J1756; J1815; J1940; J2001; J2250; J3010; J3370; J7030; J7050; Q9967

== ENCOUNTER 2021-03-02 06:33 | Inpatient (IN) | payer OTHER ==
[~2021-03-02] VITALS: Ht 175.3 cm; Wt 117.9 kg
[~2021-03-02 06:33] MED LIST: ALDACTONE25 MG PO; CARVEDILOL12.5 MG PO; CIPRO500 MG PO; CYMBALTA30 MG PO; DOXYCYCLINE HY100 MG PO; ELIQUIS5 MG PO; GABAPENTIN300 MG PO; LASIX40 MG PO; LEVEMIR100 UNIT/1 SC; LISINOPRIL2.5 MG PO; NOVOLOG MI100 UNIT/1 SC; PLAVIX75 MG PO; PRAVASTATIN SOD80 MG PO; ZETIA10 MG PO
[2021-03-02] MEDS ORDERED: TRAMADOL HCL 50 MG TAB PO ONE (07:30)
[2021-03-02] MEDS ORDERED: KETOROLAC TROMETHAMINE 30 MG/ML VIAL IV STA (08:14)
[2021-03-02] MEDS ORDERED: SODIUM CHLORIDE 0.9% 1000ML 1,000 ML IV SCH (08:15)
[2021-03-02] MEDS ORDERED: FENTANYL CITRATE/PF 100MCG/2 ML INJ IV PRN (08:15)
[2021-03-02] MEDS ORDERED: FENTANYL CITRATE/PF 100MCG/2 ML INJ IV ONE (08:15)
[2021-03-02] MEDS ORDERED: ONDANSETRON HCL INJ 2MG/ML 2ML 2 MG/ML VIAL IV PRN (08:15)
[2021-03-02] MEDS ORDERED: ACETAMINOPHEN 1000 MG/100 ML IV PRN (09:00)
[2021-03-02] MEDS ORDERED: CARVEDILOL 12.5 MG TAB PO SCH ×2 (09:00→21:00)
[2021-03-02] MEDS ORDERED: MORPHINE SULFATE INJ 4 MG/ML INJ 1ML IV PRN (09:00)
[2021-03-02 10:17] LABS: BASOPHILS % 0.3 % (0.0-1.0); EOSINOPHILS # (AUTO) 0.1 (0.0-0.4); EOSINOPHILS % 0.5 % (0.0-6.0); HEMATOCRIT 24.6 % (34.2-44.1); HEMOGLOBIN 8.1 g/dL (12.0-16.0); LYMPHOCYTES # (AUTO) 0.8 (1.0-3.2); LYMPHOCYTES % 8.7 % (18.0-39.1); MEAN CORPUSCULAR HEMOGLOBIN 31.5 pg (28-32); MEAN CORPUSCULAR HGB CONC 32.9 g/dL (31-35); MEAN CORPUSCULAR VOLUME 95.7 fL (81-99); MONOCYTES # (AUTO) 0.7 (0.2-0.8); NEUTROPHILS # (AUTO) 7.7 (2.1-6.9); PLATELET COUNT 210 x10e3/uL (140-360); RED BLOOD COUNT 2.57 x10e6/uL (3.6-5.1); RED CELL DISTRIBUTION WIDTH 14.4 % (11.7-14.4)
[2021-03-02 10:30] LABS: INR 1.48; PROTHROMBIN TIME 18.2 seconds (11.9-14.5)
[2021-03-02 10:33] LABS: ANION GAP 15.9 mmol/L (8-16); CALCIUM 8.8 mg/dL (8.4-10.2); CREATININE, SERUM 1.39 mg/dL (0.57-1.11); POTASSIUM 3.9 mmol/L (3.5-5.1)
[2021-03-02] MEDS ORDERED: SODIUM CHLORIDE 0.9% 250ML 250 ML IV ONE ×2 (11:30→14:15)
[2021-03-02] MEDS ORDERED: TRANEXAMIC ACID 1,000 MG/10 ML ML ONE (13:50)
[2021-03-02] MEDS ORDERED: DEXAMETHASONE SOD PHOS INJ 4 MG/ML SDV ONE (14:55)
[2021-03-02] MEDS ORDERED: POVIDONE IODINE 0.05% 0.05 % ML PO ONE (14:55)
[2021-03-02] MEDS ORDERED: ONDANSETRON HCL INJ 2MG/ML 2ML 2 MG/ML VIAL ONE (14:55)
[2021-03-02] MEDS ORDERED: PROPOFOL IV EMULSION 10 MG/ML 20 ML VIAL ONE (14:55)
[2021-03-02] MEDS ORDERED: EPHEDRINE SULFATE INJ 50 MG/ML VIAL ONE (14:55)
[2021-03-02] MEDS ORDERED: ROCURONIUM BROMIDE 10 MG/ML 5ML VIAL IV ONE (14:55)
[2021-03-02] MEDS ORDERED: SEVOFLURANE INHAL SOLN 250 ML PEN BTL ONE (14:55)
[2021-03-02] MEDS ORDERED: BUPIVACAINE 0.25% 30ML SDV ONE (15:40)
[2021-03-02] MEDS ORDERED: MORPHINE SULFATE 1 MG/ML 30ML PCA IV PRN (16:15)
[2021-03-02] MEDS ORDERED: NALOXONE HCL INJ 0.4 MG/ML AMP IV PRN (16:15)
[2021-03-02] MEDS ORDERED: INSULIN REGULAR, HUMAN 100 UNIT/1 ML ONE (16:23)
[2021-03-02 16:40] LABS: BASOPHILS % 0.4 % (0.0-1.0); EOSINOPHILS % 0.3 % (0.0-6.0); HEMATOCRIT 29.8 % (34.2-44.1); HEMOGLOBIN 9.6 g/dL (12.0-16.0); LYMPHOCYTES # (AUTO) 1.1 (1.0-3.2); LYMPHOCYTES % 9.9 % (18.0-39.1); MEAN CORPUSCULAR HEMOGLOBIN 30.6 pg (28-32); MEAN CORPUSCULAR HGB CONC 32.2 g/dL (31-35); MEAN CORPUSCULAR VOLUME 94.9 fL (81-99); MONOCYTES # (AUTO) 0.6 (0.2-0.8); MONOCYTES % 5.6 % (4.4-11.3); NEUTROPHILS % 82.7 % (38.7-80.0); PLATELET COUNT 176 x10e3/uL (140-360); RED BLOOD COUNT 3.14 x10e6/uL (3.6-5.1)
[2021-03-02] MEDS ORDERED: MORPHINE SULFATE 1 MG/ML 30ML PCA ONE (17:01)
[2021-03-02 17:11] LABS: ANION GAP 18.5 mmol/L (8-16); CALCIUM 7.9 mg/dL (8.4-10.2); CREATININE, SERUM 1.65 mg/dL (0.57-1.11); POTASSIUM 4.5 mmol/L (3.5-5.1)
[2021-03-02] MEDS: ACETAMINOPHEN 1000 MG/100 ML IV SCH (17:15)
[2021-03-02 17:56] VITALS: BP 96/61
[2021-03-02 18:10] VITALS: BP 113/49
[2021-03-02 20:00] VITALS: BP 113/49
[2021-03-02 20:37] VITALS: BP 105/52
[2021-03-02] MEDS ORDERED: TRAMADOL HCL 50 MG TAB PO PRN ×2 (21:00)
[2021-03-02] MEDS ORDERED: GABAPENTIN 300 MG CAP PO SCH (21:00)
[2021-03-02] MEDS: INSULIN GLARGINE 100 UNITS/ML VIAL SQ SCH (21:00)
[2021-03-02] MEDS ORDERED: SIMVASTATIN 40 MG TAB PO SCH (21:00)
[2021-03-02] MEDS: CEFAZOLIN IV SCH (23:14)
[2021-03-02] MEDS: SODIUM CHLORIDE 0.9% IV SCH (23:14)
[2021-03-02 23:58] LABS: BASOPHILS % 0.2 % (0.0-1.0); EOSINOPHILS % 0.1 % (0.0-6.0); HEMATOCRIT 24.8 % (34.2-44.1); HEMOGLOBIN 8.2 g/dL (12.0-16.0); LYMPHOCYTES # (AUTO) 0.8 (1.0-3.2); LYMPHOCYTES % 7.6 % (18.0-39.1); MEAN CORPUSCULAR HEMOGLOBIN 30.5 pg (28-32); MEAN CORPUSCULAR HGB CONC 33.1 g/dL (31-35); MEAN CORPUSCULAR VOLUME 92.2 fL (81-99); MONOCYTES # (AUTO) 0.8 (0.2-0.8); NEUTROPHILS # (AUTO) 9.3 (2.1-6.9); NEUTROPHILS % 84.1 % (38.7-80.0); PLATELET COUNT 168 x10e3/uL (140-360); RED BLOOD COUNT 2.69 x10e6/uL (3.6-5.1); RED CELL DISTRIBUTION WIDTH 15.4 % (11.7-14.4)
[2021-03-03] VITALS (7 sets, daily range): BP systolic 98–112; BP diastolic 58–74
[2021-03-03 00:16] LABS: ALBUMIN 2.6 g/dL (3.5-5.0); ALBUMIN/GLOBULIN RATIO 0.9 (0.8-2.0); ANION GAP 17.7 mmol/L (8-16); CALCIUM 7.6 mg/dL (8.4-10.2); CREATININE, SERUM 1.97 mg/dL (0.57-1.11); POTASSIUM 4.7 mmol/L (3.5-5.1)
[2021-03-03 00:22] LABS: CREATINE KINASE MB 11.4 ng/mL (0-5.0)
[2021-03-03] MEDS: ACETAMINOPHEN 1000 MG/100 ML IV SCH ×3 (02:13→12:00)
[2021-03-03 05:55] LABS: BASOPHILS % 0.2 % (0.0-1.0); HEMOGLOBIN 7.6 g/dL (12.0-16.0); LYMPHOCYTES # (AUTO) 0.9 (1.0-3.2); LYMPHOCYTES % 8.9 % (18.0-39.1); MEAN CORPUSCULAR HEMOGLOBIN 30.4 pg (28-32); MEAN CORPUSCULAR HGB CONC 33.2 g/dL (31-35); MEAN CORPUSCULAR VOLUME 91.6 fL (81-99); MONOCYTES # (AUTO) 0.9 (0.2-0.8); MONOCYTES % 8.6 % (4.4-11.3); NEUTROPHILS # (AUTO) 8.4 (2.1-6.9); NEUTROPHILS % 81.6 % (38.7-80.0); PLATELET COUNT 178 x10e3/uL (140-360); RED CELL DISTRIBUTION WIDTH 15.4 % (11.7-14.4)
[2021-03-03] MEDS: CEFAZOLIN IV SCH ×2 (06:00→17:30)
[2021-03-03] MEDS: SODIUM CHLORIDE 0.9% IV SCH ×2 (06:00→17:30)
[2021-03-03 06:04] LABS: HEMATOCRIT 22.9 % (34.2-44.1)
[2021-03-03 06:16] LABS: ANION GAP 18.7 mmol/L (8-16); CALCIUM 7.8 mg/dL (8.4-10.2); CREATININE, SERUM 2.21 mg/dL (0.57-1.11); POTASSIUM 4.7 mmol/L (3.5-5.1)
[2021-03-03] MEDS ORDERED: HYDROCODONE/APAP 10MG-325MG TAB PO PRN (08:30)
[2021-03-03] MEDS ORDERED: DEXTROSE 50% SYRINGE 50 ML IV PRN (08:30)
[2021-03-03] MEDS ORDERED: SODIUM CHLORIDE 0.9% 250ML 250 ML ONE ×2 (08:42→14:06)
[2021-03-03] MEDS: GABAPENTIN 100 MG CAP PO SCH ×3 (09:00→20:14)
[2021-03-03] MEDS: CARVEDILOL 12.5 MG TAB PO SCH ×2 (09:00→20:14)
[2021-03-03] MEDS: INSULIN LISPRO 100 UNIT/1 ML 3ML VIAL SQ SCH ×4 (10:00→20:15)
[2021-03-03] MEDS ORDERED: ACETAMINOPHEN 1000 MG/100 ML IV SCH (14:00)
[2021-03-03] MEDS: TRAMADOL HCL 50 MG TAB PO SCH ×2 (14:00→20:14)
[2021-03-03] MEDS: INSULIN GLARGINE 100 UNITS/ML VIAL SQ SCH (20:15)
[2021-03-04] VITALS (8 sets, daily range): BP systolic 93–145; BP diastolic 46–73
[2021-03-04 05:52] LABS: BASOPHILS # (AUTO) 0.1 (0.0-0.1); BASOPHILS % 0.6 % (0.0-1.0); EOSINOPHILS # (AUTO) 0.2 (0.0-0.4); EOSINOPHILS % 1.9 % (0.0-6.0); HEMOGLOBIN 7.2 g/dL (12.0-16.0); LYMPHOCYTES # (AUTO) 0.9 (1.0-3.2); LYMPHOCYTES % 9.1 % (18.0-39.1); MEAN CORPUSCULAR HEMOGLOBIN 30.4 pg (28-32); MEAN CORPUSCULAR HGB CONC 32.1 g/dL (31-35); MEAN CORPUSCULAR VOLUME 94.5 fL (81-99); MONOCYTES % 10.4 % (4.4-11.3); NEUTROPHILS # (AUTO) 7.7 (2.1-6.9); NEUTROPHILS % 76.9 % (38.7-80.0); PLATELET COUNT 151 x10e3/uL (140-360); RED BLOOD COUNT 2.37 x10e6/uL (3.6-5.1); RED CELL DISTRIBUTION WIDTH 16.7 % (11.7-14.4)
[2021-03-04] MEDS: TRAMADOL HCL 50 MG TAB PO SCH ×2 (06:00→11:25)
[2021-03-04 06:06] LABS: HEMATOCRIT 22.4 % (34.2-44.1)
[2021-03-04 06:17] LABS: ANION GAP 12.4 mmol/L (8-16); CALCIUM 7.7 mg/dL (8.4-10.2); CREATININE, SERUM 2.53 mg/dL (0.57-1.11); POTASSIUM 4.4 mmol/L (3.5-5.1)
[2021-03-04] MEDS: INSULIN LISPRO 100 UNIT/1 ML 3ML VIAL SQ SCH ×4 (08:29→21:06)
[2021-03-04] MEDS ORDERED: FUROSEMIDE INJ 10 MG/ML 2 ML VIAL IV PRN (08:45)
[2021-03-04] MEDS ORDERED: SODIUM CHLORIDE 0.9% 250ML 250 ML IV ONE (08:45)
[2021-03-04] MEDS: CARVEDILOL 12.5 MG TAB PO SCH ×2 (08:49→21:00)
[2021-03-04] MEDS: GABAPENTIN 100 MG CAP PO SCH ×2 (08:49→14:03)
[2021-03-04] MEDS ORDERED: SODIUM CHLORIDE 0.9% 250ML 250 ML ONE ×2 (12:17→17:59)
[2021-03-04 16:19] LABS: CLARITY,URINE HAZY (CLEAR); COLOR,URINE PINK (YELLOW); KETONES,URINE NEGATIVE (NEGATIVE); LEUKOCYTE ESTERASE ,URINE TRACE (NEGATIVE); NITRITE,URINE NEGATIVE (NEGATIVE); PROTEIN,URINE DIPSTICK 2+ (NEGATIVE); URINE UROBILINOGEN 0.2 mg/dL (0.2 - 1)
[2021-03-04 16:37] LABS: BACTERIA,URINE FEW /HPF; RBC,URINE >50 /HPF (0-5); WBC,URINE (MAN) 0-5 /HPF (0-5)
[2021-03-04] MEDS ORDERED: CEFTRIAXONE 1 GM in SODIUM CHLORIDE 0.9% 50ML 50 ML IV SCH (18:00)
[2021-03-04] MEDS ORDERED: HYDROCODONE/APAP 5MG-325MG TAB PO PRN (20:15)
[2021-03-04] MEDS ORDERED: LACTATED RINGER'S 1,000 ML INJ ONE (20:15)
[2021-03-04] MEDS: MORPHINE SULFATE INJ 4 MG/ML INJ 1ML IV PRN (21:27)
[2021-03-05] VITALS (9 sets, daily range): BP systolic 119–153; BP diastolic 45–63
[2021-03-05] MEDS: MORPHINE SULFATE INJ 4 MG/ML INJ 1ML IV PRN ×2 (01:10→08:34)
[2021-03-05 05:27] LABS: BASOPHILS % 0.4 % (0.0-1.0); EOSINOPHILS # (AUTO) 0.2 (0.0-0.4); EOSINOPHILS % 1.6 % (0.0-6.0); HEMATOCRIT 26.3 % (34.2-44.1); HEMOGLOBIN 8.6 g/dL (12.0-16.0); LYMPHOCYTES # (AUTO) 1.3 (1.0-3.2); LYMPHOCYTES % 12.7 % (18.0-39.1); MEAN CORPUSCULAR HGB CONC 32.7 g/dL (31-35); MEAN CORPUSCULAR VOLUME 94.9 fL (81-99); MONOCYTES # (AUTO) 1.1 (0.2-0.8); MONOCYTES % 11.1 % (4.4-11.3); NEUTROPHILS # (AUTO) 7.2 (2.1-6.9); NEUTROPHILS % 72.9 % (38.7-80.0); PLATELET COUNT 132 x10e3/uL (140-360); RED BLOOD COUNT 2.77 x10e6/uL (3.6-5.1)
[2021-03-05 05:46] LABS: ANION GAP 13.1 mmol/L (8-16); CALCIUM 8.1 mg/dL (8.4-10.2); CREATININE, SERUM 1.48 mg/dL (0.57-1.11); POTASSIUM 4.1 mmol/L (3.5-5.1)
[2021-03-05] MEDS: INSULIN GLARGINE 100 UNITS/ML VIAL SQ SCH (06:55)
[2021-03-05] MEDS: INSULIN LISPRO 100 UNIT/1 ML 3ML VIAL SQ SCH ×4 (07:30→20:54)
[2021-03-05] MEDS: CARVEDILOL 12.5 MG TAB PO SCH (08:18)
[2021-03-05] MEDS: FAMOTIDINE 20 MG/2 ML VIAL IV SCH (08:34)
[2021-03-05] MEDS ORDERED: ASPIRIN 325 MG TAB PO SCH (14:00)
[2021-03-05] MEDS: SODIUM CHLORIDE 0.9% 1000ML 1,000 ML IV SCH (18:07)
[2021-03-05] MEDS ORDERED: CARVEDILOL 12.5 MG TAB NG SCH (21:00)
[2021-03-05] MEDS: CARVEDILOL 3.125 MG TAB NG SCH (21:12)
[2021-03-05] MEDS: KETOROLAC TROMETHAMINE 30 MG/ML VIAL IV PRN (22:09)
[2021-03-06] VITALS (7 sets, daily range): BP systolic 124–152; BP diastolic 42–67
[2021-03-06] MEDS: INSULIN GLARGINE 100 UNITS/ML VIAL SQ SCH (06:03)
[2021-03-06] MEDS: INSULIN LISPRO 100 UNIT/1 ML 3ML VIAL SQ SCH ×4 (08:28→20:53)
[2021-03-06] MEDS ORDERED: ASPIRIN 325 MG TAB NG SCH (09:00)
[2021-03-06] MEDS: FAMOTIDINE 20 MG/2 ML VIAL IV SCH (09:42)
[2021-03-06] MEDS: CARVEDILOL 3.125 MG TAB NG SCH ×2 (09:43→21:04)
[2021-03-06] MEDS: SODIUM CHLORIDE 0.9% 1000ML 1,000 ML IV SCH (09:43)
[2021-03-06] MEDS: APIXABAN 5 MG TABLET PO SCH ×2 (11:25→18:22)
[2021-03-07] VITALS (8 sets, daily range): BP systolic 121–153; BP diastolic 52–72
[2021-03-07] MEDS: INSULIN GLARGINE 100 UNITS/ML VIAL SQ SCH ×2 (05:59→21:47)
[2021-03-07] MEDS: PIPERACILLIN/TAZOBACTAM 3.375 GM in SODIUM CHLORIDE 0.9% 50ML 50 ML IV SCH ×3 (06:12→22:50)
[2021-03-07] MEDS: ACETAMINOPHEN 325 MG TAB PO PRN ×2 (06:12→16:54)
[2021-03-07] MEDS: SODIUM CHLORIDE 0.9% 1000ML 1,000 ML IV SCH (06:13)
[2021-03-07 06:21] LABS: BASOPHILS % 0.4 % (0.0-1.0); EOSINOPHILS # (AUTO) 0.1 (0.0-0.4); HEMATOCRIT 28.7 % (34.2-44.1); HEMOGLOBIN 9.1 g/dL (12.0-16.0); LYMPHOCYTES # (AUTO) 0.7 (1.0-3.2); LYMPHOCYTES % 10.6 % (18.0-39.1); MEAN CORPUSCULAR HGB CONC 31.7 g/dL (31-35); MEAN CORPUSCULAR VOLUME 97.6 fL (81-99); MONOCYTES # (AUTO) 0.7 (0.2-0.8); MONOCYTES % 10.2 % (4.4-11.3); NEUTROPHILS # (AUTO) 5.2 (2.1-6.9); NEUTROPHILS % 76.1 % (38.7-80.0); PLATELET COUNT 161 x10e3/uL (140-360); RED BLOOD COUNT 2.94 x10e6/uL (3.6-5.1); RED CELL DISTRIBUTION WIDTH 16.2 % (11.7-14.4)
[2021-03-07 06:59] LABS: ALBUMIN 2.3 g/dL (3.5-5.0); ALBUMIN/GLOBULIN RATIO 0.5 (0.8-2.0); CALCIUM 8.3 mg/dL (8.4-10.2); CREATININE, SERUM 1.2 mg/dL (0.57-1.11)
[2021-03-07] MEDS: INSULIN LISPRO 100 UNIT/1 ML 3ML VIAL SQ SCH ×4 (10:30→21:24)
[2021-03-07] MEDS: CARVEDILOL 3.125 MG TAB NG SCH ×2 (10:30→21:00)
[2021-03-07] MEDS: APIXABAN 5 MG TABLET PO SCH ×2 (10:30→16:49)
[2021-03-07] MEDS ORDERED: NEOMYCIN/POLYMYX/BACITR OINT 0.9 GM PKT TOP PRN (13:45)
[2021-03-07 17:04] LABS: CLARITY,URINE HAZY (CLEAR); COLOR,URINE YELLOW (YELLOW); KETONES,URINE NEGATIVE (NEGATIVE); LEUKOCYTE ESTERASE ,URINE NEGATIVE (NEGATIVE); NITRITE,URINE NEGATIVE (NEGATIVE); PROTEIN,URINE DIPSTICK 1+ (NEGATIVE); URINE UROBILINOGEN 1 mg/dL (0.2 - 1)
[2021-03-07 17:09] LABS: BACTERIA,URINE FEW /HPF; EPITHELIAL CELLS,URINE FEW /LPF
[2021-03-07 17:10] LABS: URIC ACID CRYSTALS,URINE FEW (FEW)
[2021-03-07] MEDS ORDERED: Vancomycin IV 1 GM in SODIUM CHLORIDE 0.9% 250ML 250 ML IV ONE (20:00)
[2021-03-07] MEDS: ATORVASTATIN 20 MG TAB PO SCH (21:00)
[2021-03-07] MEDS: ASPIRIN 81 MG CHEW TAB PO SCH (21:00)
[2021-03-08] VITALS (8 sets, daily range): BP systolic 121–162; BP diastolic 52–77
[2021-03-08] MEDS: PIPERACILLIN/TAZOBACTAM 3.375 GM in SODIUM CHLORIDE 0.9% 50ML 50 ML IV SCH ×3 (06:00→22:17)
[2021-03-08 06:49] LABS: BASOPHILS % 0.5 % (0.0-1.0); EOSINOPHILS # (AUTO) 0.2 (0.0-0.4); HEMATOCRIT 28.7 % (34.2-44.1); HEMOGLOBIN 9.3 g/dL (12.0-16.0); LYMPHOCYTES % 12.8 % (18.0-39.1); MEAN CORPUSCULAR HEMOGLOBIN 33.3 pg (28-32); MEAN CORPUSCULAR HGB CONC 32.4 g/dL (31-35); MEAN CORPUSCULAR VOLUME 102.9 fL (81-99); MONOCYTES # (AUTO) 0.7 (0.2-0.8); MONOCYTES % 9.3 % (4.4-11.3); NEUTROPHILS # (AUTO) 5.5 (2.1-6.9); NEUTROPHILS % 73.5 % (38.7-80.0); PLATELET COUNT 150 x10e3/uL (140-360); RED BLOOD COUNT 2.79 x10e6/uL (3.6-5.1); RED CELL DISTRIBUTION WIDTH 17.5 % (11.7-14.4)
[2021-03-08] MEDS: INSULIN LISPRO 100 UNIT/1 ML 3ML VIAL SQ SCH ×4 (07:30→21:00)
[2021-03-08 07:58] LABS: ANION GAP 13.6 mmol/L (8-16); CALCIUM 8.8 mg/dL (8.4-10.2); CREATININE, SERUM 1.14 mg/dL (0.57-1.11); POTASSIUM 4.6 mmol/L (3.5-5.1)
[2021-03-08] MEDS ORDERED: ASPIRIN 81 MG CHEW TAB PO SCH (09:00)
[2021-03-08] MEDS: CARVEDILOL 3.125 MG TAB NG SCH ×2 (09:00→21:00)
[2021-03-08] MEDS: INSULIN GLARGINE 100 UNITS/ML VIAL SQ SCH ×2 (09:00→21:30)
[2021-03-08] MEDS: APIXABAN 5 MG TABLET PO SCH ×2 (09:00→17:00)
[2021-03-08] MEDS: DEXTROSE 5% 1,000 ML IV SCH (12:50)
[2021-03-08] MEDS: ASPIRIN 81 MG CHEW TAB PO SCH (21:00)
[2021-03-08] MEDS: ATORVASTATIN 20 MG TAB PO SCH (21:00)
[2021-03-09] VITALS (9 sets, daily range): BP systolic 124–152; BP diastolic 51–66
[2021-03-09] MEDS: PIPERACILLIN/TAZOBACTAM 3.375 GM in SODIUM CHLORIDE 0.9% 50ML 50 ML IV SCH ×2 (06:17→13:38)
[2021-03-09 07:14] LABS: ANION GAP 11.2 mmol/L (8-16); CALCIUM 8.2 mg/dL (8.4-10.2); CREATININE, SERUM 1.13 mg/dL (0.57-1.11); POTASSIUM 4.2 mmol/L (3.5-5.1)
[2021-03-09] MEDS: INSULIN LISPRO 100 UNIT/1 ML 3ML VIAL SQ SCH ×4 (07:30→19:54)
[2021-03-09] MEDS: CARVEDILOL 3.125 MG TAB NG SCH ×2 (09:00→20:55)
[2021-03-09] MEDS: APIXABAN 5 MG TABLET PO SCH ×2 (09:00→16:15)
[2021-03-09] MEDS: DEXTROSE 5% 1,000 ML IV SCH (09:25)
[2021-03-09] MEDS: INSULIN GLARGINE 100 UNITS/ML VIAL SQ SCH ×2 (16:15→19:55)
[2021-03-09] MEDS: ACETAMINOPHEN 325 MG TAB PO PRN (20:00)
[2021-03-09] MEDS: ATORVASTATIN 20 MG TAB PO SCH (20:55)
[2021-03-09] MEDS: ASPIRIN 81 MG CHEW TAB PO SCH (20:55)
[2021-03-09] MEDS: KETOROLAC TROMETHAMINE 30 MG/ML VIAL IV PRN (22:53)
[2021-03-10] VITALS: BP 115/46
[2021-03-10 04:00] VITALS: BP 115/58
[2021-03-10] MEDS: DEXTROSE 5% 1,000 ML IV SCH (04:33)
[2021-03-10 08:26] LABS: BASOPHILS % 0.5 % (0.0-1.0); EOSINOPHILS # (AUTO) 0.3 (0.0-0.4); EOSINOPHILS % 3.9 % (0.0-6.0); HEMATOCRIT 28.7 % (34.2-44.1); HEMOGLOBIN 9.1 g/dL (12.0-16.0); LYMPHOCYTES # (AUTO) 1.1 (1.0-3.2); MEAN CORPUSCULAR HEMOGLOBIN 32.6 pg (28-32); MEAN CORPUSCULAR HGB CONC 31.7 g/dL (31-35); MEAN CORPUSCULAR VOLUME 102.9 fL (81-99); MONOCYTES # (AUTO) 0.5 (0.2-0.8); MONOCYTES % 8.5 % (4.4-11.3); NEUTROPHILS # (AUTO) 4.4 (2.1-6.9); NEUTROPHILS % 68.8 % (38.7-80.0); PLATELET COUNT 196 x10e3/uL (140-360); RED BLOOD COUNT 2.79 x10e6/uL (3.6-5.1); RED CELL DISTRIBUTION WIDTH 16.9 % (11.7-14.4)
[2021-03-10 08:43] VITALS: BP 142/58
[2021-03-10 08:54] LABS: CALCIUM 8.2 mg/dL (8.4-10.2); CREATININE, SERUM 1.32 mg/dL (0.57-1.11)
[2021-03-10 09:00] VITALS: BP 142/58
[2021-03-10] MEDS: INSULIN LISPRO 100 UNIT/1 ML 3ML VIAL SQ SCH ×4 (09:00→21:00)
[2021-03-10] MEDS: INSULIN GLARGINE 100 UNITS/ML VIAL SQ SCH ×2 (09:02→20:54)
[2021-03-10] MEDS: APIXABAN 5 MG TABLET PO SCH ×2 (09:02→16:37)
[2021-03-10] MEDS: CARVEDILOL 3.125 MG TAB NG SCH ×2 (09:03→21:26)
[2021-03-10] MEDS: SODIUM CHLORIDE 0.45% 1,000 ML IV SCH (11:00)
[2021-03-10 11:54] VITALS: BP 111/44
[2021-03-10 12:41] LABS: CHOL/HDL RATIO 4.7 (3.0-3.6)
[2021-03-10 13:36] LABS: FREE THYROXINE INDEX 1.9929 (1.4-3.8); THYROID STIMULATING HORMONE 0.779 uIU/mL (0.350-4.940)
[2021-03-10] MEDS: PIPERACILLIN/TAZOBACTAM 3.375 GM in SODIUM CHLORIDE 0.9% 50ML 50 ML IV SCH ×2 (16:37→21:26)
[2021-03-10 17:25] VITALS: BP 101/76
[2021-03-10] MEDS: ATORVASTATIN 20 MG TAB PO SCH (21:26)
[2021-03-10] MEDS: ASPIRIN 81 MG CHEW TAB PO SCH (21:26)
[2021-03-11] VITALS (7 sets, daily range): BP systolic 110–140; BP diastolic 40–80
[2021-03-11] MEDS: SODIUM CHLORIDE 0.45% 1,000 ML IV SCH ×2 (02:49→11:00)
[2021-03-11] MEDS: ACETAMINOPHEN 325 MG TAB PO PRN (02:51)
[2021-03-11 06:19] LABS: BASOPHILS % 0.6 % (0.0-1.0); EOSINOPHILS # (AUTO) 0.3 (0.0-0.4); EOSINOPHILS % 4.3 % (0.0-6.0); HEMOGLOBIN 8.7 g/dL (12.0-16.0); LYMPHOCYTES # (AUTO) 1.5 (1.0-3.2); LYMPHOCYTES % 21.8 % (18.0-39.1); MEAN CORPUSCULAR HEMOGLOBIN 30.5 pg (28-32); MEAN CORPUSCULAR VOLUME 101.8 fL (81-99); MONOCYTES # (AUTO) 0.6 (0.2-0.8); MONOCYTES % 9.1 % (4.4-11.3); NEUTROPHILS # (AUTO) 4.3 (2.1-6.9); NEUTROPHILS % 63.3 % (38.7-80.0); PLATELET COUNT 252 x10e3/uL (140-360); RED BLOOD COUNT 2.85 x10e6/uL (3.6-5.1)
[2021-03-11] MEDS: PIPERACILLIN/TAZOBACTAM 3.375 GM in SODIUM CHLORIDE 0.9% 50ML 50 ML IV SCH ×2 (06:19→13:13)
[2021-03-11 06:53] LABS: ANION GAP 12.9 mmol/L (8-16); CALCIUM 7.8 mg/dL (8.4-10.2); CREATININE, SERUM 1.17 mg/dL (0.57-1.11); POTASSIUM 3.9 mmol/L (3.5-5.1)
[2021-03-11] MEDS: APIXABAN 5 MG TABLET PO SCH ×2 (08:57→16:11)
[2021-03-11] MEDS: CARVEDILOL 3.125 MG TAB NG SCH ×2 (08:57→22:59)
[2021-03-11] MEDS: INSULIN GLARGINE 100 UNITS/ML VIAL SQ SCH ×2 (09:00→21:37)
[2021-03-11] MEDS: INSULIN LISPRO 100 UNIT/1 ML 3ML VIAL SQ SCH ×4 (09:00→21:36)
[2021-03-11] MEDS: DEXTROSE 5% 1,000 ML IV SCH (16:11)
[2021-03-11] MEDS: ATORVASTATIN 20 MG TAB PO SCH (22:59)
[2021-03-11] MEDS: ASPIRIN 81 MG CHEW TAB PO SCH (22:59)
[2021-03-12] VITALS (7 sets, daily range): BP systolic 109–149; BP diastolic 47–67
[2021-03-12] MEDS: PIPERACILLIN/TAZOBACTAM 3.375 GM in SODIUM CHLORIDE 0.9% 50ML 50 ML IV SCH ×4 (00:39→21:32)
[2021-03-12] MEDS: DEXTROSE 5% 1,000 ML IV SCH ×2 (03:59→16:06)
[2021-03-12 05:55] LABS: BASOPHILS # (AUTO) 0.1 (0.0-0.1); BASOPHILS % 0.6 % (0.0-1.0); EOSINOPHILS # (AUTO) 0.3 (0.0-0.4); EOSINOPHILS % 3.4 % (0.0-6.0); HEMATOCRIT 27.4 % (34.2-44.1); HEMOGLOBIN 8.5 g/dL (12.0-16.0); LYMPHOCYTES # (AUTO) 1.5 (1.0-3.2); LYMPHOCYTES % 19.3 % (18.0-39.1); MEAN CORPUSCULAR HEMOGLOBIN 31.1 pg (28-32); MEAN CORPUSCULAR VOLUME 100.4 fL (81-99); MONOCYTES # (AUTO) 0.6 (0.2-0.8); MONOCYTES % 7.8 % (4.4-11.3); NEUTROPHILS # (AUTO) 5.2 (2.1-6.9); NEUTROPHILS % 67.6 % (38.7-80.0); PLATELET COUNT 259 x10e3/uL (140-360); RED BLOOD COUNT 2.73 x10e6/uL (3.6-5.1); RED CELL DISTRIBUTION WIDTH 16.2 % (11.7-14.4)
[2021-03-12 06:26] LABS: ANION GAP 12.7 mmol/L (8-16); CALCIUM 7.8 mg/dL (8.4-10.2); CREATININE, SERUM 1.04 mg/dL (0.57-1.11); POTASSIUM 3.7 mmol/L (3.5-5.1)
[2021-03-12] MEDS: INSULIN GLARGINE 100 UNITS/ML VIAL SQ SCH ×2 (10:30→21:34)
[2021-03-12] MEDS: INSULIN LISPRO 100 UNIT/1 ML 3ML VIAL SQ SCH ×4 (10:30→21:33)
[2021-03-12] MEDS: CARVEDILOL 3.125 MG TAB NG SCH ×2 (11:43→21:32)
[2021-03-12] MEDS: APIXABAN 5 MG TABLET PO SCH ×2 (11:43→17:25)
[2021-03-12] MEDS: ATORVASTATIN 20 MG TAB PO SCH (21:32)
[2021-03-12] MEDS: ASPIRIN 81 MG CHEW TAB PO SCH (21:32)
[2021-03-13] VITALS (8 sets, daily range): BP systolic 115–139; BP diastolic 42–63
[2021-03-13] MEDS: PIPERACILLIN/TAZOBACTAM 3.375 GM in SODIUM CHLORIDE 0.9% 50ML 50 ML IV SCH (05:46)
[2021-03-13 06:22] LABS: BASOPHILS # (AUTO) 0.1 (0.0-0.1); BASOPHILS % 0.6 % (0.0-1.0); EOSINOPHILS # (AUTO) 0.3 (0.0-0.4); EOSINOPHILS % 4.1 % (0.0-6.0); HEMOGLOBIN 8.6 g/dL (12.0-16.0); LYMPHOCYTES # (AUTO) 1.4 (1.0-3.2); LYMPHOCYTES % 17.5 % (18.0-39.1); MEAN CORPUSCULAR HGB CONC 31.9 g/dL (31-35); MEAN CORPUSCULAR VOLUME 103.4 fL (81-99); MONOCYTES # (AUTO) 0.6 (0.2-0.8); NEUTROPHILS # (AUTO) 5.7 (2.1-6.9); NEUTROPHILS % 69.6 % (38.7-80.0); PLATELET COUNT 241 x10e3/uL (140-360); RED BLOOD COUNT 2.61 x10e6/uL (3.6-5.1); RED CELL DISTRIBUTION WIDTH 17.2 % (11.7-14.4)
[2021-03-13 06:52] LABS: ANION GAP 12.6 mmol/L (8-16); CALCIUM 7.9 mg/dL (8.4-10.2); CREATININE, SERUM 1.03 mg/dL (0.57-1.11); POTASSIUM 3.6 mmol/L (3.5-5.1)
[2021-03-13] MEDS: INSULIN GLARGINE 100 UNITS/ML VIAL SQ SCH ×2 (08:48→22:08)
[2021-03-13] MEDS: APIXABAN 5 MG TABLET PO SCH ×2 (08:48→19:14)
[2021-03-13] MEDS: INSULIN LISPRO 100 UNIT/1 ML 3ML VIAL SQ SCH ×4 (08:48→22:06)
[2021-03-13] MEDS: CARVEDILOL 3.125 MG TAB NG SCH ×2 (08:52→22:29)
[2021-03-13] MEDS: DEXTROSE 5% 1,000 ML IV SCH (13:52)
[2021-03-13] MEDS ORDERED: SODIUM CHLORIDE 0.9% 50ML 50 ML ONE (19:21)
[2021-03-13] MEDS: ASPIRIN 81 MG CHEW TAB PO SCH (22:28)
[2021-03-13] MEDS: ATORVASTATIN 20 MG TAB PO SCH (22:28)
[2021-03-14] VITALS (7 sets, daily range): BP systolic 128–169; BP diastolic 54–73
[2021-03-14 06:45] LABS: BASOPHILS % 0.5 % (0.0-1.0); EOSINOPHILS # (AUTO) 0.3 (0.0-0.4); EOSINOPHILS % 3.8 % (0.0-6.0); HEMATOCRIT 26.2 % (34.2-44.1); HEMOGLOBIN 8.3 g/dL (12.0-16.0); LYMPHOCYTES # (AUTO) 1.6 (1.0-3.2); LYMPHOCYTES % 19.4 % (18.0-39.1); MEAN CORPUSCULAR HEMOGLOBIN 31.3 pg (28-32); MEAN CORPUSCULAR HGB CONC 31.7 g/dL (31-35); MEAN CORPUSCULAR VOLUME 98.9 fL (81-99); MONOCYTES # (AUTO) 0.6 (0.2-0.8); MONOCYTES % 7.6 % (4.4-11.3); NEUTROPHILS # (AUTO) 5.6 (2.1-6.9); NEUTROPHILS % 67.5 % (38.7-80.0); PLATELET COUNT 287 x10e3/uL (140-360); RED BLOOD COUNT 2.65 x10e6/uL (3.6-5.1); RED CELL DISTRIBUTION WIDTH 16.6 % (11.7-14.4)
[2021-03-14 06:59] LABS: ANION GAP 10.6 mmol/L (8-16); CALCIUM 7.7 mg/dL (8.4-10.2); CREATININE, SERUM 0.84 mg/dL (0.57-1.11); POTASSIUM 3.6 mmol/L (3.5-5.1)
[2021-03-14] MEDS: APIXABAN 5 MG TABLET PO SCH ×2 (09:04→16:34)
[2021-03-14] MEDS: INSULIN LISPRO 100 UNIT/1 ML 3ML VIAL SQ SCH ×4 (09:04→20:32)
[2021-03-14] MEDS: CARVEDILOL 3.125 MG TAB NG SCH ×2 (09:07→20:43)
[2021-03-14] MEDS: INSULIN GLARGINE 100 UNITS/ML VIAL SQ SCH ×2 (09:07→20:32)
[2021-03-14] MEDS: ASPIRIN 81 MG CHEW TAB PO SCH (20:43)
[2021-03-14] MEDS: ATORVASTATIN 20 MG TAB PO SCH (20:43)
[2021-03-15] VITALS (8 sets, daily range): BP systolic 123–149; BP diastolic 52–67
[2021-03-15] MEDS: INSULIN LISPRO 100 UNIT/1 ML 3ML VIAL SQ SCH ×4 (07:30→21:20)
[2021-03-15] MEDS: APIXABAN 5 MG TABLET PO SCH ×2 (08:57→17:04)
[2021-03-15] MEDS: CARVEDILOL 3.125 MG TAB NG SCH ×2 (08:58→21:14)
[2021-03-15] MEDS: INSULIN GLARGINE 100 UNITS/ML VIAL SQ SCH ×2 (08:59→21:20)
[2021-03-15] MEDS: RIVASTIGMINE TARTRATE 1.5 MG CAP PO SCH (17:04)
[2021-03-15] MEDS: ASPIRIN 81 MG CHEW TAB PO SCH (21:14)
[2021-03-15] MEDS: ATORVASTATIN 20 MG TAB PO SCH (21:14)
[2021-03-16] VITALS (9 sets, daily range): BP systolic 120–149; BP diastolic 50–86
[2021-03-16] MEDS: INSULIN LISPRO 100 UNIT/1 ML 3ML VIAL SQ SCH ×4 (07:30→21:00)
[2021-03-16] MEDS: RIVASTIGMINE TARTRATE 1.5 MG CAP PO SCH ×2 (08:00→16:30)
[2021-03-16] MEDS: INSULIN GLARGINE 100 UNITS/ML VIAL SQ SCH ×2 (09:00→21:00)
[2021-03-16] MEDS: APIXABAN 5 MG TABLET PO SCH ×2 (10:00→16:30)
[2021-03-16] MEDS: CARVEDILOL 3.125 MG TAB NG SCH ×2 (10:00→21:04)
[2021-03-16] MEDS ORDERED: COREG6.25 MG PO (11:53)
[2021-03-16] MEDS ORDERED: ONDANSETRON HCL 4 MG ORAL DISINTEGRATING TAB PO PRN (12:15)
[2021-03-16] MEDS: ACETAMINOPHEN 325 MG TAB PO PRN (20:00)
[2021-03-16] MEDS: ATORVASTATIN 20 MG TAB PO SCH (21:03)
[2021-03-16] MEDS: ASPIRIN 81 MG CHEW TAB PO SCH (21:03)
[2021-03-17] MEDS: ACETAMINOPHEN 325 MG TAB PO PRN (02:00)
[2021-03-17 04:00] VITALS: BP 111/60
[2021-03-17 07:34] VITALS: BP 131/50
[2021-03-17 08:35] VITALS: BP 131/50
[2021-03-17] MEDS: RIVASTIGMINE TARTRATE 1.5 MG CAP PO SCH ×2 (09:22→18:13)
[2021-03-17] MEDS: CARVEDILOL 3.125 MG TAB NG SCH ×2 (09:22→21:33)
[2021-03-17] MEDS: APIXABAN 5 MG TABLET PO SCH ×2 (09:23→18:13)
[2021-03-17] MEDS: INSULIN LISPRO 100 UNIT/1 ML 3ML VIAL SQ SCH ×4 (09:29→21:30)
[2021-03-17] MEDS: INSULIN GLARGINE 100 UNITS/ML VIAL SQ SCH ×2 (09:29→21:30)
[2021-03-17 11:27] VITALS: BP 132/60
[2021-03-17 16:01] VITALS: BP 131/33
[2021-03-17 20:00] VITALS: BP 148/58
[2021-03-17] MEDS: ASPIRIN 81 MG CHEW TAB PO SCH (21:32)
[2021-03-17] MEDS: ATORVASTATIN 20 MG TAB PO SCH (21:33)
[2021-03-18] VITALS: BP 138/60
[2021-03-18 04:00] VITALS: BP 147/72
[2021-03-18 07:23] VITALS: BP 143/67
[2021-03-18] MEDS: INSULIN LISPRO 100 UNIT/1 ML 3ML VIAL SQ SCH ×2 (07:30→11:30)
[2021-03-18 08:47] VITALS: BP 143/67
[2021-03-18 10:52] VITALS: BP 143/67
[2021-03-18] MEDS: RIVASTIGMINE TARTRATE 1.5 MG CAP PO SCH (11:12)
[2021-03-18] MEDS: APIXABAN 5 MG TABLET PO SCH (11:12)
[2021-03-18] MEDS: CARVEDILOL 3.125 MG TAB NG SCH (11:12)
[2021-03-18] MEDS: INSULIN GLARGINE 100 UNITS/ML VIAL SQ SCH (11:13)
== END 2021-03-18 13:00 | DRG 480 ==
LOC: ER 06:46 → ERHOLD 08:14 → PACU V 12:23 → MED/SURG 17:44
PROVIDERS: ADMIT Internal Medicine; ATTEND Internal Medicine
PROC: 0QS706Z Reposition Left Upper Femur with Intramedullary Internal Fixation Device, Open Approach (ICD-10-PCS; principal; 2021-03-02 13:01)
DX: S72.142A Displaced intertrochanteric fracture of left femur, initial encounter for closed fracture (principal); I63.40 Cerebral infarction due to embolism of unspecified cerebral artery; N17.9 Acute kidney failure, unspecified; I13.0 Hypertensive heart and chronic kidney disease with heart failure and stage 1 through stage 4 chronic kidney disease, or unspecified chronic kidney disease; E87.0 Hyperosmolality and hypernatremia; D62 Acute posthemorrhagic anemia; I50.22 Chronic systolic (congestive) heart failure; M62.82 Rhabdomyolysis; I48.20 Chronic atrial fibrillation, unspecified; E11.22 Type 2 diabetes mellitus with diabetic chronic kidney disease; R13.10 Dysphagia, unspecified; Z79.01 Long term (current) use of anticoagulants; Z20.822 Contact with and (suspected) exposure to COVID-19; G43.909 Migraine, unspecified, not intractable, without status migrainosus; E66.01 Morbid (severe) obesity due to excess calories; Z68.38 Body mass index [BMI] 38.0-38.9, adult
CPT/HCPCS: 36415; 70450; 70551; 71045; 72125; 74018; 76000; 80048; 80053; 80061; 81001; 82140; 82550; 82553; 82948; 83036; 83605; 84436; 84443; 84479; 84484; 85025; 85610; 86039; 86850; 86900; 86920; 87040; 87086; 93005; 93306; 93880; 96360; 96361; 96372; 97139; 99251; 99284; C1713; J0690; J0696; J1100; J1815; J1817; J1885; J1940; J2270; J2310; J2405; J2543; J3010; J3370; J7030; J7050; J7070; J7121; P9016; U0002

== ENCOUNTER 2021-03-30 13:26 | Inpatient (IN) | payer OTHER ==
[~2021-03-30] VITALS: Ht 175.3 cm; Wt 117.9 kg
[~2021-03-30 13:26] MED LIST changes: +COREG6.25 MG PO
[2021-03-30] MEDS ORDERED: SODIUM CHLORIDE 0.9% 1000ML 1,000 ML IV STA (13:47)
[2021-03-30 14:02] LABS: BASOPHILS % 0.6 % (0.0-1.0); EOSINOPHILS # (AUTO) 0.3 (0.0-0.4); EOSINOPHILS % 4.3 % (0.0-6.0); HEMATOCRIT 33.2 % (34.2-44.1); HEMOGLOBIN 10.3 g/dL (12.0-16.0); LYMPHOCYTES # (AUTO) 1.6 (1.0-3.2); LYMPHOCYTES % 24.4 % (18.0-39.1); MEAN CORPUSCULAR HEMOGLOBIN 31.3 pg (28-32); MEAN CORPUSCULAR VOLUME 100.9 fL (81-99); MONOCYTES # (AUTO) 0.5 (0.2-0.8); NEUTROPHILS # (AUTO) 3.9 (2.1-6.9); NEUTROPHILS % 61.9 % (38.7-80.0); PLATELET COUNT 230 x10e3/uL (140-360); RED BLOOD COUNT 3.29 x10e6/uL (3.6-5.1); RED CELL DISTRIBUTION WIDTH 17.6 % (11.7-14.4)
[2021-03-30 14:07] LABS: INR 1.34; PROTHROMBIN TIME 16.8 seconds (11.9-14.5)
[2021-03-30 14:08] LABS: PARTIAL THROMBOPLASTIN TIME 31.5 seconds (23.8-35.5)
[2021-03-30 14:12] LABS: CLARITY,URINE CLOUDY (CLEAR); COLOR,URINE YELLOW (YELLOW)
[2021-03-30 14:13] LABS: KETONES,URINE TRACE (NEGATIVE); LEUKOCYTE ESTERASE ,URINE LARGE (NEGATIVE); NITRITE,URINE POSITIVE (NEGATIVE); PROTEIN,URINE DIPSTICK 2+ (NEGATIVE); URINE UROBILINOGEN >=8 mg/dL (0.2 - 1)
[2021-03-30 14:15] LABS: ALBUMIN 2.9 g/dL (3.5-5.0); ALBUMIN/GLOBULIN RATIO 0.6 (0.8-2.0); ANION GAP 14.3 mmol/L (8-16); CALCIUM 8.7 mg/dL (8.4-10.2); CREATININE, SERUM 0.85 mg/dL (0.57-1.11); MAGNESIUM 1.8 MG/DL (1.3-2.1); POTASSIUM 3.3 mmol/L (3.5-5.1)
[2021-03-30] MEDS ORDERED: ACETAMINOPHEN 1000 MG/100 ML IV STA (14:16)
[2021-03-30 14:20] LABS: BACTERIA,URINE MANY /HPF; EPITHELIAL CELLS,URINE RARE /LPF; WBC,URINE (MAN) >50 /HPF (0-5)
[2021-03-30 14:22] LABS: CREATINE KINASE MB 4.9 ng/mL (0-5.0)
[2021-03-30] MEDS ORDERED: MEROPENEM 1 GM in SODIUM CHLORIDE 0.9% 100 ML IV ONE (14:30)
[2021-03-30 14:45] LABS: B-TYPE NATRIURETIC PEPTIDE2 167.3 pg/mL (0-100)
[2021-03-30] MEDS ORDERED: SODIUM CHLORIDE 0.9% 500ML 500 ML IV ONE (15:15)
[2021-03-30] MEDS ORDERED: ZIPRASIDONE 20 MG VIAL IM STA ×2 (16:29→22:44)
[2021-03-30] MEDS ORDERED: SODIUM CHLORIDE 0.9% 1000ML 1,000 ML IV SCH (16:45)
[2021-03-30] MEDS ORDERED: POTASSIUM CHLORIDE 20MEQ/100ML 300 ML IV ONE (20:45)
[2021-03-30] MEDS ORDERED: LACTATED RINGER'S 1,000 ML INJ ONE (20:45)
[2021-03-30] MEDS ORDERED: ONDANSETRON HCL INJ 2MG/ML 2ML 2 MG/ML VIAL IV PRN (20:45)
[2021-03-30 22:00] VITALS: BP 139/57
[2021-03-30] MEDS ORDERED: MEROPENEM 1 GM in SODIUM CHLORIDE 0.9% 100 ML IV SCH (22:00)
[2021-03-30] MEDS: MEROPENEM 1 GM in SODIUM CHLORIDE 0.9% 100 ML IV SCH (22:00)
[2021-03-30] MEDS: HEPARIN SOD (PORCINE) 5,000 UNIT/ML VIAL SC SCH (22:47)
[2021-03-30] MEDS ORDERED: SODIUM CHLORIDE 0.9% 500ML 500 ML ONE (23:32)
[2021-03-30] MEDS: POTASSIUM CHLORIDE 20MEQ/100ML 100 ML IV SCH (23:45)
[2021-03-31] VITALS (10 sets, daily range): BP systolic 123–175; BP diastolic 57–73
[2021-03-31] MEDS ORDERED: Morphine 2mg Syringe 2 MG/ML SYR IV STA (00:03)
[2021-03-31] MEDS: POTASSIUM CHLORIDE 20MEQ/100ML 100 ML IV SCH ×2 (03:45→08:29)
[2021-03-31] MEDS: MEROPENEM 1 GM in SODIUM CHLORIDE 0.9% 100 ML IV SCH ×3 (06:00→21:18)
[2021-03-31 06:22] LABS: BASOPHILS % 0.6 % (0.0-1.0); EOSINOPHILS # (AUTO) 0.4 (0.0-0.4); EOSINOPHILS % 7.2 % (0.0-6.0); HEMOGLOBIN 9.6 g/dL (12.0-16.0); LYMPHOCYTES # (AUTO) 1.3 (1.0-3.2); MEAN CORPUSCULAR HEMOGLOBIN 31.7 pg (28-32); MEAN CORPUSCULAR VOLUME 102.3 fL (81-99); MONOCYTES # (AUTO) 0.5 (0.2-0.8); MONOCYTES % 10.7 % (4.4-11.3); NEUTROPHILS # (AUTO) 2.6 (2.1-6.9); NEUTROPHILS % 53.5 % (38.7-80.0); PLATELET COUNT 181 x10e3/uL (140-360); RED BLOOD COUNT 3.03 x10e6/uL (3.6-5.1); RED CELL DISTRIBUTION WIDTH 17.6 % (11.7-14.4)
[2021-03-31 06:54] LABS: CREATINE KINASE MB 3.3 ng/mL (0-5.0)
[2021-03-31 07:01] LABS: ALBUMIN 2.6 g/dL (3.5-5.0); ALBUMIN/GLOBULIN RATIO 0.7 (0.8-2.0); ANION GAP 12.9 mmol/L (8-16); CALCIUM 8.2 mg/dL (8.4-10.2); CREATININE, SERUM 0.7 mg/dL (0.57-1.11); POTASSIUM 3.9 mmol/L (3.5-5.1)
[2021-03-31] MEDS: HEPARIN SOD (PORCINE) 5,000 UNIT/ML VIAL SC SCH ×2 (08:28→21:19)
[2021-03-31] MEDS ORDERED: METOPROLOL TARTRATE INJ 1 MG/ML VIAL IV ONE (11:15)
[2021-03-31 16:07] LABS: CREATINE KINASE MB 11.5 ng/mL (0-5.0)
[2021-03-31] MEDS ORDERED: LACTATED RINGER'S 1,000 ML INJ SCH (20:30)
[2021-03-31] MEDS ORDERED: METOPROLOL TARTRATE INJ 1 MG/ML VIAL IV PRN (22:15)
[2021-03-31] MEDS: FAMOTIDINE 20 MG/2 ML VIAL IV SCH (22:34)
[2021-04-01] VITALS (9 sets, daily range): BP systolic 132–167; BP diastolic 51–95
[2021-04-01 05:34] LABS: BASOPHILS % 0.7 % (0.0-1.0); EOSINOPHILS # (AUTO) 0.4 (0.0-0.4); EOSINOPHILS % 6.4 % (0.0-6.0); HEMATOCRIT 30.9 % (34.2-44.1); HEMOGLOBIN 9.7 g/dL (12.0-16.0); LYMPHOCYTES # (AUTO) 1.1 (1.0-3.2); MEAN CORPUSCULAR HEMOGLOBIN 31.5 pg (28-32); MEAN CORPUSCULAR HGB CONC 31.4 g/dL (31-35); MEAN CORPUSCULAR VOLUME 100.3 fL (81-99); MONOCYTES # (AUTO) 0.6 (0.2-0.8); MONOCYTES % 10.3 % (4.4-11.3); NEUTROPHILS # (AUTO) 3.4 (2.1-6.9); NEUTROPHILS % 61.7 % (38.7-80.0); PLATELET COUNT 196 x10e3/uL (140-360); RED BLOOD COUNT 3.08 x10e6/uL (3.6-5.1); RED CELL DISTRIBUTION WIDTH 17.2 % (11.7-14.4)
[2021-04-01] MEDS: MEROPENEM 1 GM in SODIUM CHLORIDE 0.9% 100 ML IV SCH ×3 (05:34→20:44)
[2021-04-01 05:53] LABS: CALCIUM 8.3 mg/dL (8.4-10.2); CREATININE, SERUM 0.75 mg/dL (0.57-1.11)
[2021-04-01] MEDS: COLLAGENASE 5 GM TUBE TOP SCH (08:50)
[2021-04-01] MEDS: BALSAM PERU/CASTOR OIL 60 GM OINT...G. TP SCH (08:50)
[2021-04-01] MEDS: FAMOTIDINE 20 MG/2 ML VIAL IV SCH ×2 (08:50→16:39)
[2021-04-01] MEDS: HEPARIN SOD (PORCINE) 5,000 UNIT/ML VIAL SC SCH (08:51)
[2021-04-01] MEDS ORDERED: DEXTROSE 50% SYRINGE 50 ML IV PRN (13:15)
[2021-04-01] MEDS: INSULIN REGULAR, HUMAN 100 UNIT/1 ML SQ SCH ×2 (13:47→20:44)
[2021-04-01] MEDS: APIXABAN 5 MG TABLET PO SCH (16:39)
[2021-04-01] MEDS: CARVEDILOL 3.125 MG TAB PO SCH (16:44)
[2021-04-01] MEDS: SIMVASTATIN 40 MG TAB PO SCH (20:43)
[2021-04-02] VITALS (8 sets, daily range): BP systolic 115–150; BP diastolic 62–104
[2021-04-02] MEDS: MEROPENEM 1 GM in SODIUM CHLORIDE 0.9% 100 ML IV SCH ×3 (05:29→22:00)
[2021-04-02] MEDS: FAMOTIDINE 20 MG/2 ML VIAL IV SCH ×2 (08:08→16:29)
[2021-04-02] MEDS: BALSAM PERU/CASTOR OIL 60 GM OINT...G. TP SCH (08:09)
[2021-04-02] MEDS: CLOPIDOGREL BISULFATE 75 MG TAB PO SCH (08:09)
[2021-04-02] MEDS: APIXABAN 5 MG TABLET PO SCH ×2 (08:09→16:26)
[2021-04-02] MEDS: CARVEDILOL 3.125 MG TAB PO SCH ×2 (08:09→16:26)
[2021-04-02] MEDS: EZETIMIBE 10 MG TAB PO SCH (08:09)
[2021-04-02] MEDS: COLLAGENASE 5 GM TUBE TOP SCH (08:09)
[2021-04-02] MEDS: INSULIN REGULAR, HUMAN 100 UNIT/1 ML SQ SCH ×4 (08:18→19:54)
[2021-04-02] MEDS ORDERED: DULOXETINE HCL 30 MG DELAYED RELEASE PO SCH (09:00)
[2021-04-02] MEDS: SIMVASTATIN 40 MG TAB PO SCH (20:32)
[2021-04-02] MEDS ORDERED: LORAZEPAM 0.5 MG TAB PO PRN (21:00)
[2021-04-03] VITALS (10 sets, daily range): BP systolic 100–156; BP diastolic 56–83
[2021-04-03] MEDS: MEROPENEM 1 GM in SODIUM CHLORIDE 0.9% 100 ML IV SCH ×3 (06:30→21:20)
[2021-04-03] MEDS ORDERED: SODIUM CHLORIDE 0.9% 250ML 250 ML ONE (06:38)
[2021-04-03] MEDS: INSULIN REGULAR, HUMAN 100 UNIT/1 ML SQ SCH ×4 (07:16→20:08)
[2021-04-03] MEDS: CARVEDILOL 3.125 MG TAB PO SCH ×2 (08:02→15:27)
[2021-04-03] MEDS: FAMOTIDINE 20 MG/2 ML VIAL IV SCH ×2 (08:02→16:35)
[2021-04-03] MEDS: APIXABAN 5 MG TABLET PO SCH ×2 (08:02→16:35)
[2021-04-03] MEDS: BALSAM PERU/CASTOR OIL 60 GM OINT...G. TP SCH (08:03)
[2021-04-03] MEDS: EZETIMIBE 10 MG TAB PO SCH (08:03)
[2021-04-03] MEDS: COLLAGENASE 5 GM TUBE TOP SCH (08:03)
[2021-04-03] MEDS: CLOPIDOGREL BISULFATE 75 MG TAB PO SCH (08:04)
[2021-04-03] MEDS: OLANZAPINE 5 MG TAB PO SCH (13:29)
[2021-04-03] MEDS: SIMVASTATIN 40 MG TAB PO SCH (21:00)
[2021-04-04] VITALS (9 sets, daily range): BP systolic 124–160; BP diastolic 60–91
[2021-04-04] MEDS: MEROPENEM 1 GM in SODIUM CHLORIDE 0.9% 100 ML IV SCH ×3 (05:50→21:40)
[2021-04-04] MEDS: INSULIN REGULAR, HUMAN 100 UNIT/1 ML SQ SCH ×4 (07:30→20:20)
[2021-04-04] MEDS: FAMOTIDINE 20 MG/2 ML VIAL IV SCH ×2 (08:39→16:34)
[2021-04-04] MEDS: APIXABAN 5 MG TABLET PO SCH ×2 (08:39→16:35)
[2021-04-04] MEDS: CARVEDILOL 3.125 MG TAB PO SCH ×2 (08:39→16:35)
[2021-04-04] MEDS: COLLAGENASE 5 GM TUBE TOP SCH (08:40)
[2021-04-04] MEDS: OLANZAPINE 5 MG TAB PO SCH ×2 (08:40→16:34)
[2021-04-04] MEDS: CLOPIDOGREL BISULFATE 75 MG TAB PO SCH (08:40)
[2021-04-04] MEDS: BALSAM PERU/CASTOR OIL 60 GM OINT...G. TP SCH (08:40)
[2021-04-04] MEDS: EZETIMIBE 10 MG TAB PO SCH (08:40)
[2021-04-04] MEDS: DRONABINOL 2.5MG PO SCH (16:34)
[2021-04-04] MEDS: SIMVASTATIN 40 MG TAB PO SCH (21:40)
[2021-04-05] VITALS (8 sets, daily range): BP systolic 126–170; BP diastolic 54–84
[2021-04-05] MEDS: MEROPENEM 1 GM in SODIUM CHLORIDE 0.9% 100 ML IV SCH ×3 (05:56→21:09)
[2021-04-05] MEDS: DRONABINOL 2.5MG PO SCH ×2 (07:30→16:30)
[2021-04-05] MEDS: INSULIN REGULAR, HUMAN 100 UNIT/1 ML SQ SCH ×4 (07:30→21:08)
[2021-04-05] MEDS: CARVEDILOL 3.125 MG TAB PO SCH ×2 (09:00→17:00)
[2021-04-05] MEDS: OLANZAPINE 5 MG TAB PO SCH ×2 (09:00→17:00)
[2021-04-05] MEDS: EZETIMIBE 10 MG TAB PO SCH (09:00)
[2021-04-05] MEDS: BALSAM PERU/CASTOR OIL 60 GM OINT...G. TP SCH (09:00)
[2021-04-05] MEDS: FAMOTIDINE 20 MG/2 ML VIAL IV SCH ×2 (09:00→17:00)
[2021-04-05] MEDS: APIXABAN 5 MG TABLET PO SCH ×2 (09:00→17:00)
[2021-04-05] MEDS: COLLAGENASE 5 GM TUBE TOP SCH (09:00)
[2021-04-05] MEDS: CLOPIDOGREL BISULFATE 75 MG TAB PO SCH (09:00)
[2021-04-05] MEDS ORDERED: QUETIAPINE FUMARATE 25 MG TAB PO SCH (21:00)
[2021-04-05] MEDS: SIMVASTATIN 40 MG TAB PO SCH (21:09)
[2021-04-06 00:13] VITALS: BP 126/52
[2021-04-06 04:45] VITALS: BP 141/43
[2021-04-06 05:57] LABS: BASOPHILS % 0.6 % (0.0-1.0); EOSINOPHILS # (AUTO) 0.2 (0.0-0.4); EOSINOPHILS % 4.8 % (0.0-6.0); HEMATOCRIT 28.7 % (34.2-44.1); HEMOGLOBIN 9.4 g/dL (12.0-16.0); LYMPHOCYTES # (AUTO) 1.6 (1.0-3.2); LYMPHOCYTES % 33.1 % (18.0-39.1); MEAN CORPUSCULAR HGB CONC 32.8 g/dL (31-35); MEAN CORPUSCULAR VOLUME 97.6 fL (81-99); MONOCYTES # (AUTO) 0.5 (0.2-0.8); MONOCYTES % 10.9 % (4.4-11.3); NEUTROPHILS # (AUTO) 2.4 (2.1-6.9); NEUTROPHILS % 49.8 % (38.7-80.0); PLATELET COUNT 238 x10e3/uL (140-360); RED BLOOD COUNT 2.94 x10e6/uL (3.6-5.1); RED CELL DISTRIBUTION WIDTH 17.4 % (11.7-14.4)
[2021-04-06] MEDS: MEROPENEM 1 GM in SODIUM CHLORIDE 0.9% 100 ML IV SCH ×2 (06:07→14:14)
[2021-04-06 06:22] LABS: ANION GAP 12.5 mmol/L (8-16); CALCIUM 8.1 mg/dL (8.4-10.2); CREATININE, SERUM 0.76 mg/dL (0.57-1.11); POTASSIUM 3.5 mmol/L (3.5-5.1)
[2021-04-06 07:59] VITALS: BP 118/47
[2021-04-06] MEDS: DRONABINOL 2.5MG PO SCH ×2 (08:00→16:30)
[2021-04-06] MEDS: INSULIN REGULAR, HUMAN 100 UNIT/1 ML SQ SCH ×3 (08:02→16:30)
[2021-04-06] MEDS: FAMOTIDINE 20 MG/2 ML VIAL IV SCH ×2 (08:26→17:12)
[2021-04-06] MEDS: OLANZAPINE 5 MG TAB PO SCH ×2 (08:27→17:12)
[2021-04-06] MEDS: CARVEDILOL 3.125 MG TAB PO SCH ×2 (08:27→17:12)
[2021-04-06] MEDS: APIXABAN 5 MG TABLET PO SCH ×2 (08:27→17:12)
[2021-04-06] MEDS: COLLAGENASE 5 GM TUBE TOP SCH (08:27)
[2021-04-06] MEDS: CLOPIDOGREL BISULFATE 75 MG TAB PO SCH (08:27)
[2021-04-06] MEDS: BALSAM PERU/CASTOR OIL 60 GM OINT...G. TP SCH (08:27)
[2021-04-06] MEDS: EZETIMIBE 10 MG TAB PO SCH (08:27)
[2021-04-06 08:45] VITALS: BP 118/57
[2021-04-06 11:35] VITALS: BP 158/54
[2021-04-06] MEDS ORDERED: ZYPREXA5 MG PO (12:39)
[2021-04-06 15:52] VITALS: BP 138/51
[2021-04-06] MEDS ORDERED: ONDANSETRON HCL 4 MG ORAL DISINTEGRATING TAB PO PRN (17:30)
[2021-04-07] MEDS ORDERED: FAMOTIDINE 20 MG TAB PO SCH (07:30)
== END 2021-04-06 19:07 | disposition home health service (06) | DRG 871 ==
LOC: ER 13:35 → ERHOLD 16:48 → MED/SURG3 22:02
PROVIDERS: ADMIT Internal Medicine; ATTEND Internal Medicine
DX: A41.9 Sepsis, unspecified organism (principal); G93.41 Metabolic encephalopathy; N39.0 Urinary tract infection, site not specified; Z16.12 Extended spectrum beta lactamase (ESBL) resistance; F03.91 Unspecified dementia, unspecified severity, with behavioral disturbance; I69.320 Aphasia following cerebral infarction; E11.9 Type 2 diabetes mellitus without complications; I48.91 Unspecified atrial fibrillation; I10 Essential (primary) hypertension; E66.9 Obesity, unspecified; L89.152 Pressure ulcer of sacral region, stage 2; Z20.822 Contact with and (suspected) exposure to COVID-19; Z88.5 Allergy status to narcotic agent; B96.20 Unspecified Escherichia coli [E. coli] as the cause of diseases classified elsewhere; M25.562 Pain in left knee; Z68.38 Body mass index [BMI] 38.0-38.9, adult; Z79.4 Long term (current) use of insulin
CPT/HCPCS: 36415; 70450; 71045; 74230; 80048; 80053; 81001; 82550; 82553; 82948; 83605; 83735; 83880; 84484; 85025; 85610; 85730; 87040; 87086; 87186; 93005; 97139; 99251; 99284; J1644; J1817; J2185; J3480; J3486; J7030; J7040; J7050; J7121; U0002

== ENCOUNTER 2021-07-20 15:38 | Emergency (ER) | payer MEDICARE, OTHER ==
[~2021-07-20] VITALS: Ht 175.3 cm; Wt 117.9 kg
[~2021-07-20 15:38] MED LIST changes: +ZYPREXA5 MG PO
[2021-07-20 16:27] LABS: BASOPHILS % 0.8 % (0.0-1.0); EOSINOPHILS # (AUTO) 0.1 (0.0-0.4); EOSINOPHILS % 2.5 % (0.0-6.0); HEMATOCRIT 34.3 % (34.2-44.1); HEMOGLOBIN 10.9 g/dL (12.0-16.0); LYMPHOCYTES # (AUTO) 1.1 (1.0-3.2); LYMPHOCYTES % 23.3 % (18.0-39.1); MEAN CORPUSCULAR HEMOGLOBIN 31.6 pg (28-32); MEAN CORPUSCULAR HGB CONC 31.8 g/dL (31-35); MEAN CORPUSCULAR VOLUME 99.4 fL (81-99); MONOCYTES # (AUTO) 0.4 (0.2-0.8); MONOCYTES % 8.3 % (4.4-11.3); NEUTROPHILS # (AUTO) 3.1 (2.1-6.9); NEUTROPHILS % 64.7 % (38.7-80.0); PLATELET COUNT 251 x10e3/uL (140-360); RED BLOOD COUNT 3.45 x10e6/uL (3.6-5.1); RED CELL DISTRIBUTION WIDTH 13.9 % (11.7-14.4)
[2021-07-20 16:33] LABS: CLARITY,URINE SL CLOUDY (CLEAR); COLOR,URINE STRAW (YELLOW); KETONES,URINE NEGATIVE (NEGATIVE); LEUKOCYTE ESTERASE ,URINE NEGATIVE (NEGATIVE); NITRITE,URINE NEGATIVE (NEGATIVE); PROTEIN,URINE DIPSTICK NEGATIVE (NEGATIVE); URINE UROBILINOGEN 0.2 mg/dL (0.2 - 1)
[2021-07-20 16:44] LABS: EPITHELIAL CELLS,URINE FEW /LPF; RBC,URINE 0-5 /HPF (0-5)
[2021-07-20 16:48] LABS: ALBUMIN 3.2 g/dL (3.5-5.0); ALBUMIN/GLOBULIN RATIO 0.7 (0.8-2.0); ANION GAP 16.2 mmol/L (8-16); CALCIUM 9.3 mg/dL (8.4-10.2); CREATININE, SERUM 0.95 mg/dL (0.57-1.11); POTASSIUM 4.2 mmol/L (3.5-5.1)
[2021-07-20 16:56] LABS: CREATINE KINASE MB 1.4 ng/mL (0-5.0)
[2021-07-20 17:23] LABS: INR 1.26; PROTHROMBIN TIME 16.6 seconds (11.9-14.5)
[2021-07-20 17:24] LABS: PARTIAL THROMBOPLASTIN TIME 35.4 seconds (23.8-35.5)
== END 2021-07-20 21:05 | disposition home or self-care (01) ==
LOC: ER 16:02
DX: F03.90 Unspecified dementia, unspecified severity, without behavioral disturbance, psychotic disturbance, mood disturbance, and anxiety (principal); I10 Essential (primary) hypertension; E11.65 Type 2 diabetes mellitus with hyperglycemia; Z20.822 Contact with and (suspected) exposure to COVID-19; I50.9 Heart failure, unspecified; I48.91 Unspecified atrial fibrillation; Z86.73 Personal history of transient ischemic attack (TIA), and cerebral infarction without residual deficits
CPT/HCPCS: 36415; 70450; 71045; 80053; 81001; 82550; 82553; 83605; 83735; 84484; 85025; 85610; 85730; 87040; 87086; 93005; 99284; U0002